=== PATIENT | male | born 2000 | race Caucasian/White ===

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

== ENCOUNTER → 2018-03-29 | Outpatient (CLI) | payer OTHER ==
--- NOTE | 2018-03-29 17:32 | PE ---
EXAMINATION TYPE: PET CT fusion skull to thigh DATE OF EXAM: 03/29/2018 COMPARISON: Neck CT September 02, 2017. HISTORY: Lymphoma initial staging study after left Surgery March 10, 2017. TECHNIQUE: Following the intravenous administration of 11.385 mCi of F-18 FDG, whole body images are performed from the skull base to the midthigh. Images are reviewed on the computer in the coronal, axial, and sagittal planes. Reconstructed rotating images are created on independent workstation and reviewed on the computer. A noncontrast CT is performed in conjunction with the PET scan. SCAN: Initial Scan FINDINGS: SKULL BASE AND NECK: No suspicious hypermetabolic uptake or hypermetabolic adenopathy is identified with particular attention to the left submandibular region at area of prior mass or neoplasm. CHEST, MEDIASTINUM, AND HILAR REGION: No suspicious hypermetabolic uptake is seen. ABDOMEN AND PELVIS: Liver is upper limits of normal in size. Spleen is not suspiciously enlarged. No suspicious hypermetabolic uptake in either structure is present. No suspicious hypermetabolic uptake in the abdomen or pelvis is seen. Normal excretion is noted. OSSEOUS STRUCTURES: No suspicious hypermetabolic uptake is present. OTHER CT: Patient has very little intra-abdominal fat making evaluation slightly suboptimal. IMPRESSION: No suspicious hypermetabolic uptake to suggest residual or metastatic malignancy.
== END | disposition home or self-care (01) ==
LOC: RADPETMAIN 14:20
PROVIDERS: ATTEND Internal Medicine Hematology & Oncology
DX: C83.71 Burkitt lymphoma, lymph nodes of head, face, and neck (principal)
CPT/HCPCS: 78815; A9552

== ENCOUNTER → 2018-04-09 | Outpatient (CLI) | payer OTHER ==
--- NOTE | 2018-04-10 07:34 | ECHOF ---
Referral Reason:C83.71 lymphoma, Z01.818 Pre Chemo MEASUREMENTS -------- HEIGHT: 154.9 cm WEIGHT: 68.9 kg BP: 110/70 RVIDd: 3.0 cm (< 3.3) IVSd: 0.8 cm (0.6 - 1.1) LVIDd: 4.7 cm (3.9 - 5.3) LVPWd: 0.7 cm (0.6 - 1.1) IVSs: 1.5 cm LVIDs: 3.4 cm LVPWs: 1.4 cm LA Diam: 3.2 cm (2.7 - 3.8) LAESV Index (A-L): 18.46 ml/m Ao Diam: 2.8 cm (2.0 - 3.7) AV Cusp: 1.9 cm (1.5 - 2.6) MV EXCURSION: 22.278 mm (> 18.000) MV EF SLOPE: 194 mm/s (70 - 150) EPSS: 0.6 cm MV E Efrem: 0.83 m/s MV DecT: 220 ms MV A Efrem: 0.49 m/s MV E/A Ratio: 1.71 FINDINGS -------- Sinus rhythm. This was a technically excellent study. The left ventricular size is normal. Left ventricular wall thickness is normal. Overall left vent ricular systolic function is normal with, an EF between 55 - 60 %. The right ventricle is normal in size. Normal LA size by volume 22+/-6 ml/m2. The right atrium is normal in size. The aortic valve is trileaflet and appears structurally normal. There is trace mitral regurgitation. Trace tricuspid regurgitation present. There is no pulmonic regurgitation present. The aortic root size is normal. Normal inferior vena cava with normal inspiratory collapse consistent with estimated right atrial pre ssure of 5 mmHg. The inferior vena cava is mildly dilated. There is no pericardial effusion. CONCLUSIONS -------- 1. Sinus rhythm. 2. This was a technically excellent study. 3. The left ventricular size is normal. 4. Left ventricular wall thickness is normal. 5. Overall left ventricular systolic function is normal with, an EF between 55 - 60 %. 6. The right ventricle is normal in size. 7. Normal LA size by volume 22+/-6 ml/m2. 8. The right atrium is normal in size. 9. The aortic valve is trileaflet and appears structurally normal. 10. There is trace mitral regurgitation. 11. Trace tricuspid regurgitation present. 12. There is no pulmonic regurgitation present. 13. The aortic root size is normal. 14. Normal inferior vena cava with normal inspiratory collapse consistent with estimated right atrial pressure of 5 mmHg. 15. The inferior vena cava is mildly dilated. 16. There is no pericardial effusion. GRAIN MERCHANDISING MANAGER: Angelica Chavira RDCS
== END | disposition home or self-care (01) ==
LOC: RADECHMAIN 14:43
PROVIDERS: ATTEND Internal Medicine Hematology & Oncology
DX: C83.71 Burkitt lymphoma, lymph nodes of head, face, and neck (principal)
CPT/HCPCS: 93306

== ENCOUNTER 2018-04-14 08:32 | Inpatient (IN) | payer OTHER ==
[~2018-04-14 08:32] MED LIST: METHOTREXATE SODIUM (PF) 25 MG/ML 2 ML VIAL INTRATHECA ONE
[2018-04-14] MEDS ORDERED: ONDANSETRON 4 MG/2 ML VIAL IVP PRN (09:00)
[2018-04-14] MEDS ORDERED: METHOTREXATE SODIUM INTRATHECA ONE (09:00)
[2018-04-14] MEDS ORDERED: SODIUM CHLORIDE 0.9% INTRATHECA ONE (09:00)
[2018-04-14 09:41] LABS: Basophils % (A) 1 %; Eosinophils # (A) 0.3 k/uL (0-0.7); Eosinophils % (A) 5 %; HCT 42.5 % (39.0-53.0); HGB 13.7 gm/dL (13.0-17.5); Lymphocytes # (A) 1.7 k/uL (1.0-4.8); Lymphocytes % (A) 31 %; MCH 27.4 pg (25.0-35.0); MCHC 32.3 g/dL (31.0-37.0); Mean Platelet Volume 7.7; Monocytes # (A) 0.3 k/uL (0-1.0); Monocytes % (A) 7 %; Neutrophils # (A) 2.9 k/uL (1.3-7.7); Neutrophils % (A) 55 %; Platelet Count 164 k/uL (150-450); RDW 13.5 % (11.5-15.5); WBC 5.3 k/uL (4.0-11.0)
[2018-04-14 09:51] LABS: ALT 27 U/L (21-72); AST 21 U/L (17-59); Albumin 4.3 g/dL (3.5-5.0); Alkaline Phosphatase 66 U/L (38-126); Anion Gap 9 mmol/L; Blood Urea Nitrogen 18 mg/dL (9-20); Calcium 9.5 mg/dL (8.4-10.2); Carbon Dioxide 28 mmol/L (22-30); Chloride 103 mmol/L (98-107); Glucose 100 mg/dL (74-99); Phosphorus 4.2 mg/dL (2.5-4.5); Potassium 4.2 mmol/L (3.5-5.1); Sodium 140 mmol/L (137-145); Total Bilirubin 0.5 mg/dL (0.2-1.3); Total Protein 6.8 g/dL (6.3-8.2)
--- NOTE | 2018-04-14 10:35 | P.HPIM ---
History of Present Illness H&P Date: 04/14/18 Chief Complaint: Burkitt's Lymphoma, admit for prophylactic IT chemo and CIVI treatment Pt is a very pleasant 17 year old male who presented with enlarged left submandibular mass, first noted July 2017. It had remained relatively stable in size overall. CT scan of the neck on 09/02/17 revealed enlarged left submandibular node, he was treated with several courses of antibiotics without improvement. 03/04/18 he had FNA of the lesion which revealed atypical lymphocytes. 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 CBC, CMP, uric acid, LDH were normal , negative for hepatitis B,C and HIV. 03/29/18 staging PET revealed slight uptake at surgical site, otherwise negative. 03/31/18 bone marrow biopsy was negative for involvement. Pt denied any B-symptoms. Pt PMH is negative, he is otherwise healthy. He is admitted today for 1st cycle R-EPOCH and prophylactic intrathecal chemotherapy. On exam today pt looks well, denies oral irritation, difficulty swallowing, SOB, cough, nausea, indigestion, abd discomfort, changes in bowel or baldder habits. Denied any new masses, rashes or lesions. He is fully ambulatory without c/o, no pain. Review of Systems 14 point ROS is negative except as stated HPI Past Medical History Past Medical History: Cancer History of Any Multi-Drug Resistant Organisms: None Reported Past Surgical History: Tonsillectomy Additional Past Surgical History / Comment(s): port placed 03/31/18 at [facility]. lt side neck tumor removed 03/10/18 Additional Past Anesthesia/Blood Transfusion Reaction / Comment(s): Never had a transfusion Past Psychological History: No Psychological Hx Reported Smoking Status: Never smoker Past Alcohol Use History: None Reported Past Drug Use History: None Reported - Past Family History Mother Additional Family Medical History / Comment(s): no Hx cancer or blood disorders Medications and Allergies Home Medications Medication Instructions Recorded Confirmed Type Lisdexamfetamine Dimesylate 60 mg PO QAM 03/31/18 04/14/18 History [Vyvanse] Allergies Allergy/AdvReac Type Severity Reaction Status Date / Time No Known Allergies Allergy Verified 04/14/18 10:06 Physical Exam - Constitutional General appearance: average body habitus, cooperative, no acute distress - EENT Eyes: anicteric sclerae, EOMI, normal appearance ENT: hearing grossly normal, normal oropharynx - Neck left anterior cervical scar from LN excision, firm swelling palpated Neck: lymphadenopathy, normal ROM - Respiratory Respiratory: bilateral: CTA - Cardiovascular Rhythm: regular Heart sounds: normal: S1, S2 Abnormal Heart Sounds: no systolic murmur, no diastolic murmur, no rub, no S3 Gallop, no S4 Gallop, no click, no other leg Peripheral Edema: bilateral: None - Gastrointestinal General gastrointestinal: no absent bowel sounds, no decreased bowel sounds, no distended, no hepatomegaly, no hyperactive bowel sounds, normal bowel sounds, no organomegaly, no rigid, no scaphoid, soft, no splenomegaly, no tenderness, no umbilical hernia, no ventral hernia - Integumentary mild pallor Integumentary: normal turgor - Neurologic Neurologic: CNII-XII intact - Musculoskeletal Musculoskeletal: strength equal bilaterally - Psychiatric Psychiatric: A&O x's 3, appropriate affect, intact judgment & insight Results CBC & Chem 7: 04/14/18 09:27 04/14/18 09:27 Thrombosis Risk Factor Assmnt - DVT/VTE Prophylaxis DVT/VTE Prophylaxis: Mechanical Prophylaxis ordered Assessment and Plan (1) Burkitt lymphoma Narrative/Plan: Node positive for disease, no extra jovanny involvement or visceral organ involvement, bone marrow negative. Admit for prophylactic IT chemotherapy, CSF sent for flow cytometry and other studies and CIVI chemotherapy. Supportive care and medications VS Q shift and PRN I&O DVT prophylaxis with SCDs s/p LP, will consider prophylaxis with lovenox tomorrow as pt has LP this AM. GI prophylaxis included in premedications Daily labs Daily f/u. Current Visit: Yes Status: Acute Priority: High Code(s): C83.70 - BURKITT LYMPHOMA, UNSPECIFIED SITE SNOMED Code(s): 503413237
--- NOTE | 2018-04-14 11:54 | P.PCN ---
Date of Procedure: 04/14/18 Preoperative Diagnosis: Burkitt's lymphoma Postoperative Diagnosis: Burkitt's lymphoma Procedure(s) Performed: Intrathecal chemotherapy administration Estimated Blood Loss (ml): 0 Pathology: other Condition: stable Disposition: floor Indications for Procedure: Burkitt's lymphoma, prophylactic chemotherapy administration Description of Procedure: LP was performed by Dr. Kay with CT guided fluoroscopy. 10 cc CSF was removed for cell count, flow cytometry, total protein and glucose. Methotrexate 12mg diluted to 5ml volume by Pharmacy. Methotrexate vial confirmed to be preservative free with Pharmacist and Chemo/Bio certified RN. Over 5 min the chemotherapy was administered in slow push fashion. On completion, 5cc NS, double check confirmed volume, sterile fluid, in a latex free free syringe. This was administered via slow push over 2 1/2 minutes. Total of 10cc fluid was instilled to equal the 10cc withdrawn from the intrathecal space. Pt tolerated procedure well, no blood loss, VS remained stable throughout procedure, pt denied pain, headache or nausea. LP needle was removed by Physician. All materials collected and disposed of in chemo specific bio-hazard bag.
[2018-04-14] MEDS ORDERED: ACETAMINOPHEN TAB 325 MG TAB PO ONE (12:00)
[2018-04-14] MEDS ORDERED: methylPREDNISolone SOD SUCCI 125 MG/2 ML VIAL IVP ONE (12:00)
[2018-04-14] MEDS ORDERED: diphenhydrAMINE 50 MG/ML 1 ML VIAL IVP ONE (12:00)
[2018-04-14] MEDS ORDERED: riTUXimab 700 MG in SODIUM CHLORIDE 0.9% 500 ML 500 ML IV NR (12:00)
[2018-04-14] MEDS: predniSONE 50 MG TAB PO SCH ×2 (13:05→21:32)
[2018-04-14] MEDS: predniSONE 10 MG TAB PO SCH ×2 (13:05→21:32)
[2018-04-14] MEDS: FAMOTIDINE 20 MG/2 ML VIAL IVP SCH (13:05)
[2018-04-14] MEDS: SODIUM CHLORIDE 0.9% 1,000 ML IV SCH ×3 (13:06→23:00)
[2018-04-14] MEDS: ONDANSETRON 16 MG in SODIUM CHLORIDE 0.9% 50 ML IVPB SCH (13:14)
[2018-04-14 13:18] LABS: Glucose,CSF 59 mg/dL (40-70); Total Protein,CSF 42 mg/dL (12-60)
[2018-04-14 14:16] LABS: Appearance,CSF Clear; CSF Tube Number 4; CSF Tube Volume 3.5; Nucleated Cells, CSF 0 u/L (0-5); Red Blood Cell,CSF 1 u/L (0-10)
--- NOTE | 2018-04-14 15:48 | FL ---
EXAMINATION TYPE: FL guided lumbar puncture LP DATE OF EXAM: 04/14/2018 COMPARISON: None HISTORY: Lymphoma, intrathecal chemotherapy administration TECHNIQUE: The procedure was explained to the patient, the risks and benefits. All questions were ans wered. Written and informed consent was obtained. Patient was placed on the fluoroscopy table in the prone view. The L3-4 level was localized. Skin was cleansed and draped in the standard sterile manner. Skin and deeper tissue was anesthetized with 1% lidocaine. Under fluoroscopic observation 20-gauge spinal needle was advanced into the intrathecal sp sheng. Clear CSF return was obtained. 10 mL CSF was withdrawn for sampling and transferred to the labor atory for additional evaluation. At this point the procedure was turned over to the nurse sondrae r for intrathecal chemotherapy administration. Following the completion of the medication administration the stylet was replaced in the needle was w ithdrawn. Patient was [facility] to [facility] for additional monitoring post lumbar puncture. Patient tolerated procedure very well. Fluoroscopy time: 12 seconds. Images: None IMPRESSION: 1. Fluoroscopy for lumbar puncture guidance for CSF acquisition for analysis and intrathecal chemoth erapy administration.
[2018-04-14] MEDS: SALT AND SODA MOUTHWASH 1,000 ML PO SCH ×2 (18:12→21:33)
[2018-04-14] MEDS: ETOPOSIDE 90 MG in SODIUM CHLORIDE 0.9% 250 ML IV SCH (19:26)
[2018-04-14] MEDS: DOXORUBICIN HCL IV SCH (19:27)
[2018-04-14] MEDS: VINCRISTINE SULFATE IV SCH (19:27)
[2018-04-14] MEDS: SODIUM CHLORIDE 0.9% IV SCH ×2 (19:27)
[2018-04-14] MEDS: FAMOTIDINE 20 MG TAB PO SCH (21:32)
--- NOTE | 2018-04-14 22:59 | CONS ---
CONSULTATION CHIEF COMPLAINT: Burkitt's lymphoma. HISTORY OF PRESENT ILLNESS: This is the first known admission for this 17-year-old white male who was brought in for 5 days of chemotherapy for recently discovered Burkitt's lymphoma. He had a mass below the angle of the jaw on the left which was biopsied and came back a demonstrating Burkitt's lymphoma. He has otherwise been healthy. He takes Vyvanse 60 mg once a day for ADD. REVIEW OF SYSTEMS: He has had no headaches, change in the vision or the hearing, chest pain, shortness of breath, cough, hemoptysis, heart disease, hypertension, murmurs, rheumatic fever, abdominal pain, nausea, vomiting, hematemesis, melena, hematochezia, colitis, diverticulosis, diverticulitis, hemorrhoids, jaundice, hepatitis, liver disease, renal failure, dysuria, frequency, urgency, hematuria, arthralgias, diabetes, etc. Past medical history, family history, and personal and social histories are unremarkable and noncontributory otherwise. He does smoke. He drinks alcohol occasionally. 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 PHYSICAL EXAMINATION: Blood pressure 120/80, pulse 68, respirations 16. He is afebrile. In general he appeared to be slender, well developed, well nourished, in no acute distress. Skin color was normal. Skin was warm and dry. Lymph nodes were not enlarged. Head, ears, eyes, nose, mouth and throat were normal. Neck veins were not distended. Thyroid was not enlarged. Chest was clear. Cardiac exam was normal. Abdomen was soft, nontender. Extremities were normal. He has a scar on the left side of the neck from his recent biopsy. IMPRESSION: 1. Burkitt's lymphoma. 2. Attention deficit disorder. RECOMMENDATIONS: None at this time. Thank you. MMODL / IJN: [id number] /
[2018-04-15] MEDS: SALT AND SODA MOUTHWASH 1,000 ML PO SCH ×5 (01:14→22:22)
[2018-04-15] MEDS: SODIUM CHLORIDE 0.9% 1,000 ML IV SCH ×3 (06:16→19:54)
[2018-04-15 08:47] LABS: Basophils % (A) 0 %; Eosinophils % (A) 0 %; HGB 14.2 gm/dL (13.0-17.5); Lymphocytes # (A) 0.3 k/uL (1.0-4.8); Lymphocytes % (A) 4 %; MCH 27.4 pg (25.0-35.0); MCHC 31.5 g/dL (31.0-37.0); MCV 86.9 fL (80.0-100.0); Mean Platelet Volume 7.9; Monocytes # (A) 0.2 k/uL (0-1.0); Monocytes % (A) 3 %; Neutrophils # (A) 6.8 k/uL (1.3-7.7); Neutrophils % (A) 93 %; Platelet Count 167 k/uL (150-450); RBC 5.18 m/uL (4.30-5.90); RDW 13.6 % (11.5-15.5); WBC 7.3 k/uL (4.0-11.0)
[2018-04-15] MEDS ORDERED: LISDEXAMFETAMINE DIMESYLATE 60 MG PO SCH (09:00)
[2018-04-15 09:03] LABS: ALT 37 U/L (21-72); AST 23 U/L (17-59); Albumin 3.8 g/dL (3.5-5.0); Alkaline Phosphatase 55 U/L (38-126); Anion Gap 8 mmol/L; Blood Urea Nitrogen 15 mg/dL (9-20); Calcium 9.5 mg/dL (8.4-10.2); Carbon Dioxide 24 mmol/L (22-30); Chloride 108 mmol/L (98-107); Glucose 129 mg/dL (74-99); Phosphorus 4.6 mg/dL (2.5-4.5); Potassium 4.5 mmol/L (3.5-5.1); Sodium 140 mmol/L (137-145); Total Bilirubin 0.8 mg/dL (0.2-1.3); Total Protein 6.4 g/dL (6.3-8.2); Uric Acid 4.1 mg/dL (3.5-8.5)
[2018-04-15] MEDS: predniSONE 10 MG TAB PO SCH ×2 (09:20→22:21)
[2018-04-15] MEDS: predniSONE 50 MG TAB PO SCH ×2 (09:20→22:22)
[2018-04-15] MEDS: LISDEXAMFETAMINE DIMESYLATE 60 MG PO SCH (12:09)
--- NOTE | 2018-04-15 14:57 | PN ---
PROGRESS NOTE DATE OF SERVICE: 04/15/2018. CHIEF COMPLAINT: Burkitt's lymphoma. HISTORY OF PRESENT ILLNESS: This gentleman is getting his chemo and he has not had any trouble so far. He denies any shortness of breath, chest pain, pleuritis, etc. PHYSICAL EXAM: His chest is clear and cardiac exam is normal. The abdomen is soft, nontender. IMPRESSION: Burkitt's lymphoma. PLAN: Continue with treatment. MMODL / IJN: [id number] /
[2018-04-15] MEDS: ONDANSETRON 16 MG in SODIUM CHLORIDE 0.9% 50 ML IVPB SCH (15:33)
[2018-04-15] MEDS: FAMOTIDINE 20 MG/2 ML VIAL IVP SCH (15:33)
--- NOTE | 2018-04-15 18:54 | P.PN ---
Subjective Progress Note Date: 04/15/18 the patient is on day #2 of his high-dose infusional chemotherapy with the hyper C VAD regimen. He is tolerating treatment well so far. He denied any fever/chills/nausea/vomiting/mouth sores. Appetite is maintained. No history of any headaches or visual complaints Objective - Vital Signs Vital signs: Vital Signs Temp 98.2 F 04/15/18 16:00 Pulse 106 H 04/15/18 16:00 Resp 16 04/15/18 16:00 BP 109/56 04/15/18 16:00 Pulse Ox 96 04/15/18 16:00 Intake & Output 04/14/18 04/15/18 04/15/18 18:59 06:59 18:59 Intake Total 7292.447 3915 2650 Output Total 300 450 975 Balance 1645.506 1174 1675 Intake: Intake, IV Titration 5285.350 6194 1915 Amount DOXOrubicin HCL 19 mg In 121 Sodium Chloride 0.9% 250 ml @ 10.813 mls/hr IV Q24H [facility] Rx#:[id number] Etoposide 90 mg In Sodium 121 Chloride 0.9% 250 ml @ 10.604 mls/hr IV Q24H [facility] Rx#:[id number] Ondansetron 16 mg In 50 Sodium Chloride 0.9% 50 ml @ 232 mls/hr IVPB Q24H [facility] Rx#:[id number] Sodium Chloride 0.9% 1, 1200 1800 1650 000 ml @ 150 mls/hr IV . Q6H40M [facility] Rx#:[id number] riTUXimab 700 mg In 498.334 Sodium Chloride 0.9% 500 ml 500 ml @ Titrate IV . Q0M Rx#:[id number] vinCRIStine SULFATE 0.75 23 mg In Sodium Chloride 0.9 % 50 ml @ 2.115 mls/hr IV Q24H [facility] Rx#:[id number] Oral 960 735 Output: Urine 300 450 975 Other: # Voids 1 - Constitutional General appearance: Present: no acute distress - EENT Eyes: Present: EOMI ENT: Present: hearing grossly normal, normal oropharynx - Respiratory Respiratory: bilateral: CTA - Cardiovascular Rhythm: regular (along with) Heart sounds: normal: S1 (given), S2 - Gastrointestinal General gastrointestinal: Present: normal bowel sounds (while), soft - Integumentary Integumentary: Present: normal - Neurologic Neurologic: Present: CNII-XII intact - Musculoskeletal Musculoskeletal: Present: generalized weakness, strength equal bilaterally (ase will resume) - Psychiatric Psychiatric: Present: A&O x's 3 - Labs CBC & Chem 7: 04/15/18 08:09 04/15/18 08:09 Labs: Abnormal Lab Results - Last 24 Hours (Table) 04/15/18 04/15/18 Range/Units 08:09 08:09 Lymphocytes # 0.3 L (1.0-4.8) k/uL Chloride 108 H (98-107) mmol/L Glucose 129 H (74-99) mg/dL Phosphorus 4.6 H (2.5-4.5) mg/dL Assessment and Plan (1) Burkitt lymphoma Narrative/Plan: the patient is on day #2 of his high-dose infusional chemotherapy regimen today. He has tolerated treatment well so far. He also received intrathecal chemotherapy yesterday without any untoward side effects. Labs were reviewed and showed no significant abnormality, especially any indicative of tumor lysis. - Continue chemotherapy per protocol - Continue to monitor with clinical exams, and labs, which have been ordered Current Visit: Yes Status: Acute Priority: High Code(s): C83.70 - BURKITT LYMPHOMA, UNSPECIFIED SITE SNOMED Code(s): 692240129
[2018-04-15] MEDS: VINCRISTINE SULFATE IV SCH (20:49)
[2018-04-15] MEDS: DOXORUBICIN HCL IV SCH (20:49)
[2018-04-15] MEDS: SODIUM CHLORIDE 0.9% IV SCH ×2 (20:49)
[2018-04-15] MEDS: ETOPOSIDE 90 MG in SODIUM CHLORIDE 0.9% 250 ML IV SCH (20:49)
[2018-04-15] MEDS: FAMOTIDINE 20 MG TAB PO SCH (22:21)
[2018-04-16] MEDS: SALT AND SODA MOUTHWASH 1,000 ML PO SCH ×5 (00:16→22:31)
[2018-04-16] MEDS: SODIUM CHLORIDE 0.9% 1,000 ML IV SCH ×6 (00:19→21:36)
[2018-04-16 07:55] LABS: Basophils % (A) 0 %; Eosinophils # (A) 0.1 k/uL (0-0.7); Eosinophils % (A) 1 %; HCT 38.5 % (39.0-53.0); HGB 12.6 gm/dL (13.0-17.5); Lymphocytes # (A) 0.3 k/uL (1.0-4.8); Lymphocytes % (A) 3 %; MCH 28.4 pg (25.0-35.0); MCHC 32.8 g/dL (31.0-37.0); MCV 86.7 fL (80.0-100.0); Mean Platelet Volume 7.3; Monocytes # (A) 0.3 k/uL (0-1.0); Monocytes % (A) 3 %; Neutrophils # (A) 10.1 k/uL (1.3-7.7); Neutrophils % (A) 94 %; Platelet Count 165 k/uL (150-450); RBC 4.45 m/uL (4.30-5.90); RDW 13.6 % (11.5-15.5); WBC 10.8 k/uL (4.0-11.0)
[2018-04-16 08:05] LABS: ALT 33 U/L (21-72); AST 16 U/L (17-59); Albumin 3.2 g/dL (3.5-5.0); Alkaline Phosphatase 57 U/L (38-126); Anion Gap 5 mmol/L; Blood Urea Nitrogen 13 mg/dL (9-20); Carbon Dioxide 25 mmol/L (22-30); Chloride 110 mmol/L (98-107); Glucose 138 mg/dL (74-99); Phosphorus 3.5 mg/dL (2.5-4.5); Potassium 4.2 mmol/L (3.5-5.1); Sodium 140 mmol/L (137-145); Total Bilirubin 0.4 mg/dL (0.2-1.3); Total Protein 5.6 g/dL (6.3-8.2); Uric Acid 3.2 mg/dL (3.5-8.5)
[2018-04-16] MEDS: predniSONE 10 MG TAB PO SCH ×2 (09:29→22:30)
[2018-04-16] MEDS: predniSONE 50 MG TAB PO SCH ×2 (09:29→22:30)
[2018-04-16] MEDS: LISDEXAMFETAMINE DIMESYLATE 60 MG PO SCH (09:30)
[2018-04-16] MEDS: FAMOTIDINE 20 MG/2 ML VIAL IVP SCH (13:02)
[2018-04-16] MEDS: ONDANSETRON 16 MG in SODIUM CHLORIDE 0.9% 50 ML IVPB SCH (13:03)
--- NOTE | 2018-04-16 14:13 | PN ---
PROGRESS NOTE DATE OF SERVICE: 04/16/2018 CHIEF COMPLAINT: Burkitt's lymphoma. HISTORY OF PRESENT ILLNESS: This gentleman is doing well with his treatments. He has had no chest pain, abdominal pain, fever, chills, nausea, vomiting, pruritus, etc. PHYSICAL EXAM: Chest is clear and cardiac exam is normal. The abdomen is soft, nontender. IMPRESSION: Burkitt's lymphoma on chemotherapy. PLAN: No change in treatment from my perspective. MMODL / IJN: [id number] /
--- NOTE | 2018-04-16 17:28 | P.PN ---
Subjective Progress Note Date: 04/16/18 Principal diagnosis: Burkitts Lymphoma No acute complaints, feeling well today. No nausea, vomting, diarrhea. Objective - Vital Signs Vital signs: Vital Signs Temp 98.2 F 04/16/18 16:06 Pulse 89 04/16/18 16:06 Resp 16 04/16/18 16:06 BP 119/69 04/16/18 16:06 Pulse Ox 96 04/16/18 16:06 Intake & Output 04/15/18 04/16/18 04/16/18 18:59 06:59 18:59 Intake Total 2650 3776 1914 Output Total 367 197 1066 Balance 1675 2976 79 Intake: Intake, IV Titration 1914 2135 1913 Amount Cyclophosphamide 1,000 mg 18 Cyclophosphamide 400 mg In Sodium Chloride 0.9% 250 ml @ 640 mls/hr IV ONCE@1800 [facility] Rx#: [id number] DOXOrubicin HCL 19 mg In 121 144 121 Sodium Chloride 0.9% 250 ml @ 10.813 mls/hr IV Q24H [facility] Rx#:[id number] Etoposide 90 mg In Sodium 121 144 121 Chloride 0.9% 250 ml @ 10.604 mls/hr IV Q24H [facility] Rx#:[id number] Sodium Chloride 0.9% 1, 1650 1800 1650 000 ml @ 150 mls/hr IV . Q6H40M [facility] Rx#:[id number] vinCRIStine SULFATE 0.75 23 30 22 mg In Sodium Chloride 0.9 % 50 ml @ 2.115 mls/hr IV Q24H [facility] Rx#:[id number] Oral 735 1640 Output: Urine 722 201 1317 - Exam Constitutional General appearance: Present: no acute distress - EENT Eyes: Present: EOMI ENT: Present: hearing grossly normal, normal oropharynx - Respiratory Respiratory: bilateral: CTA - Cardiovascular Rhythm: regular (along with) Heart sounds: normal: S1 (given), S2 - Gastrointestinal General gastrointestinal: Present: normal bowel sounds (while), soft - Integumentary Integumentary: Present: normal - Neurologic Neurologic: Present: CNII-XII intact - Musculoskeletal Musculoskeletal: Present: generalized weakness, strength equal bilaterally (ase will resume) - Psychiatric Psychiatric: Present: A&O x's 3 - Labs CBC & Chem 7: 04/16/18 07:01 04/16/18 07:01 Labs: Abnormal Lab Results - Last 24 Hours (Table) 04/16/18 04/16/18 Range/Units 07:01 07:01 Hgb 12.6 L (13.0-17.5) gm/dL Hct 38.5 L (39.0-53.0) % Neutrophils # 10.1 H (1.3-7.7) k/uL Lymphocytes # 0.3 L (1.0-4.8) k/uL Chloride 110 H (98-107) mmol/L Creatinine 0.63 L (0.66-1.25) mg/dL Glucose 138 H (74-99) mg/dL Uric Acid 3.2 L (3.5-8.5) mg/dL AST 16 L (17-59) U/L Total Protein 5.6 L (6.3-8.2) g/dL Albumin 3.2 L (3.5-5.0) g/dL Assessment and Plan Plan: (1) Burkitt lymphoma Narrative/Plan: the patient is on day #3 of his high-dose infusional chemotherapy regimen today. He has tolerated treatment well so far. He also received intrathecal chemotherapy yesterday without any untoward side effects. Labs were reviewed and showed no significant abnormality, especially any indicative of tumor lysis. - Continue chemotherapy per protocol - Continue to monitor with clinical exams, and labs, which have been ordered Physician Attest: I have completed the full history and physical and devloped the completed impression and plan, agree with above, dictated as a scribe
[2018-04-16] MEDS: VINCRISTINE SULFATE IV SCH (21:31)
[2018-04-16] MEDS: SODIUM CHLORIDE 0.9% IV SCH ×2 (21:31→21:32)
[2018-04-16] MEDS: DOXORUBICIN HCL IV SCH (21:32)
[2018-04-16] MEDS: ETOPOSIDE 90 MG in SODIUM CHLORIDE 0.9% 250 ML IV SCH (21:32)
[2018-04-16] MEDS: FAMOTIDINE 20 MG TAB PO SCH (22:30)
[2018-04-17] MEDS: SALT AND SODA MOUTHWASH 1,000 ML PO SCH ×6 (01:25→23:35)
[2018-04-17] MEDS: ACETAMINOPHEN TAB 325 MG TAB PO PRN ×2 (01:48→15:47)
[2018-04-17] MEDS: SODIUM CHLORIDE 0.9% 1,000 ML IV SCH ×4 (03:20→22:47)
[2018-04-17] MEDS: predniSONE 50 MG TAB PO SCH ×2 (08:40→21:25)
[2018-04-17] MEDS: predniSONE 10 MG TAB PO SCH ×2 (08:40→21:25)
[2018-04-17 08:50] LABS: Basophils % (A) 0 %; Eosinophils % (A) 0 %; HCT 38.3 % (39.0-53.0); HGB 12.5 gm/dL (13.0-17.5); Lymphocytes # (A) 0.3 k/uL (1.0-4.8); Lymphocytes % (A) 5 %; MCH 28.1 pg (25.0-35.0); MCHC 32.6 g/dL (31.0-37.0); MCV 86.2 fL (80.0-100.0); Mean Platelet Volume 7.2; Monocytes # (A) 0.2 k/uL (0-1.0); Monocytes % (A) 3 %; Neutrophils # (A) 6.2 k/uL (1.3-7.7); Neutrophils % (A) 92 %; Platelet Count 159 k/uL (150-450); RBC 4.45 m/uL (4.30-5.90); RDW 13.4 % (11.5-15.5); WBC 6.8 k/uL (4.0-11.0)
[2018-04-17 09:31] LABS: ALT 52 U/L (21-72); AST 28 U/L (17-59); Albumin 3.3 g/dL (3.5-5.0); Alkaline Phosphatase 51 U/L (38-126); Anion Gap 6 mmol/L; Blood Urea Nitrogen 13 mg/dL (9-20); Calcium 9.1 mg/dL (8.4-10.2); Carbon Dioxide 27 mmol/L (22-30); Chloride 106 mmol/L (98-107); Glucose 127 mg/dL (74-99); Phosphorus 3.7 mg/dL (2.5-4.5); Potassium 4.1 mmol/L (3.5-5.1); Sodium 139 mmol/L (137-145); Total Bilirubin 0.5 mg/dL (0.2-1.3); Total Protein 5.5 g/dL (6.3-8.2); Uric Acid 3.1 mg/dL (3.5-8.5)
--- NOTE | 2018-04-17 11:54 | PN ---
PROGRESS NOTE DATE OF SERVICE: 04/17/2018 CHIEF COMPLAINT: Inpatient chemotherapy for Burkitt's lymphoma. HISTORY OF PRESENT ILLNESS: This patient has developed a little low back pain. He has had otherwise no problems including nausea, diarrhea, vomiting, itching, etc. PHYSICAL EXAM: Chest is clear and the cardiac exam is normal and flanks are nontender. IMPRESSION: 1. Low back pain. 2. Burkitt's lymphoma. PLAN: No change in his program and he expects to go home Saturday. MMODL / NAHOMIN: [id number] /
--- NOTE | 2018-04-17 12:29 | P.PN ---
Subjective Progress Note Date: 04/17/18 Principal diagnosis: Burkitts Lymphoma No acute complaints, feeling well today. No nausea, vomting, diarrhea. He is tolerating treatment well and blood counts are stable. Objective - Vital Signs Vital signs: Vital Signs Temp 98 F 04/17/18 11:44 Pulse 69 04/17/18 11:44 Resp 16 04/17/18 11:44 BP 114/56 04/17/18 11:44 Pulse Ox 97 04/17/18 11:44 Intake & Output 04/16/18 04/17/18 04/17/18 18:59 06:59 18:59 Intake Total 2088 2963 872.5 Output Total 2635 2200 Balance -547 763 872.5 Intake: Intake, IV Titration 2088 2133 872.5 Amount DOXOrubicin HCL 19 mg In 132 144 55.8 Sodium Chloride 0.9% 250 ml @ 10.813 mls/hr IV Q24H [facility] Rx#:[id number] Etoposide 90 mg In Sodium 132 144 55.8 Chloride 0.9% 250 ml @ 10.604 mls/hr IV Q24H [facility] Rx#:[id number] Sodium Chloride 0.9% 1, 1800 1800 750 000 ml @ 150 mls/hr IV . Q6H40M [facility] Rx#:[id number] vinCRIStine SULFATE 0.75 24 45 10.9 mg In Sodium Chloride 0.9 % 50 ml @ 2.115 mls/hr IV Q24H [facility] Rx#:[id number] Oral 830 Output: Urine 2635 2200 Other: # Voids 1 - Exam Constitutional General appearance: Present: no acute distress - EENT Eyes: Present: EOMI ENT: Present: hearing grossly normal, normal oropharynx - Respiratory Respiratory: bilateral: CTA - Cardiovascular Rhythm: regular (along with) Heart sounds: normal: S1 (given), S2 - Gastrointestinal General gastrointestinal: Present: normal bowel sounds (while), soft - Integumentary Integumentary: Present: normal - Neurologic Neurologic: Present: CNII-XII intact - Musculoskeletal Musculoskeletal: Present: generalized weakness, strength equal bilaterally (ase will resume) - Psychiatric Psychiatric: Present: A&O x's 3 - Labs CBC & Chem 7: 04/17/18 07:58 04/17/18 07:58 Labs: Abnormal Lab Results - Last 24 Hours (Table) 04/17/18 04/17/18 Range/Units 07:58 07:58 Hgb 12.5 L (13.0-17.5) gm/dL Hct 38.3 L (39.0-53.0) % Lymphocytes # 0.3 L (1.0-4.8) k/uL Creatinine 0.61 L (0.66-1.25) mg/dL Glucose 127 H (74-99) mg/dL Uric Acid 3.1 L (3.5-8.5) mg/dL Total Protein 5.5 L (6.3-8.2) g/dL Albumin 3.3 L (3.5-5.0) g/dL Assessment and Plan Plan: (1) Burkitt lymphoma Narrative/Plan: the patient is on day #4 of his high-dose infusional chemotherapy regimen today. He has tolerated treatment well so far. He also received intrathecal chemotherapy yesterday without any untoward side effects. Labs were reviewed and showed no significant abnormality, especially any indicative of tumor lysis. - Continue chemotherapy per protocol - Continue to monitor with clinical exams, and labs, which have been ordered - Plan for discharge with prophylaxis antibiotics and neulasta in the office, 1 -2 x a week follow-up - Initation of acyclovir now. Physician Attest: I have completed the full history and physical and devloped the completed impression and plan, agree with above, dictated as a scribe
[2018-04-17] MEDS: PANTOPRAZOLE 40 MG/10 ML VIAL IVP SCH ×2 (12:45→21:25)
[2018-04-17] MEDS: LISDEXAMFETAMINE DIMESYLATE 60 MG PO SCH (14:32)
[2018-04-17] MEDS: FAMOTIDINE 20 MG/2 ML VIAL IVP SCH ×2 (14:42→21:25)
[2018-04-17] MEDS: ONDANSETRON 16 MG in SODIUM CHLORIDE 0.9% 50 ML IVPB SCH ×2 (14:43→21:25)
[2018-04-17] MEDS: ACYCLOVIR 200 MG CAP PO SCH (21:25)
[2018-04-17] MEDS: FAMOTIDINE 20 MG TAB PO SCH (22:18)
[2018-04-17] MEDS: SODIUM CHLORIDE 0.9% IV SCH ×2 (22:31→22:32)
[2018-04-17] MEDS: DOXORUBICIN HCL IV SCH (22:31)
[2018-04-17] MEDS: VINCRISTINE SULFATE IV SCH (22:32)
[2018-04-17] MEDS: ETOPOSIDE 90 MG in SODIUM CHLORIDE 0.9% 250 ML IV SCH (22:35)
[2018-04-18] MEDS: SODIUM CHLORIDE 0.9% 1,000 ML IV SCH ×4 (04:10→21:14)
[2018-04-18] MEDS: ACETAMINOPHEN TAB 325 MG TAB PO PRN ×3 (05:14→16:49)
[2018-04-18] MEDS: SALT AND SODA MOUTHWASH 1,000 ML PO SCH ×4 (05:16→21:13)
[2018-04-18 08:53] LABS: Basophils % (A) 0 %; Eosinophils % (A) 1 %; HCT 39.2 % (39.0-53.0); HGB 12.7 gm/dL (13.0-17.5); Lymphocytes # (A) 0.4 k/uL (1.0-4.8); Lymphocytes % (A) 7 %; MCH 27.5 pg (25.0-35.0); MCHC 32.4 g/dL (31.0-37.0); MCV 84.8 fL (80.0-100.0); Mean Platelet Volume 7.3; Monocytes # (A) 0.1 k/uL (0-1.0); Monocytes % (A) 2 %; Neutrophils # (A) 4.9 k/uL (1.3-7.7); Neutrophils % (A) 91 %; Platelet Count 158 k/uL (150-450); RBC 4.62 m/uL (4.30-5.90); RDW 13.4 % (11.5-15.5); WBC 5.5 k/uL (4.0-11.0)
[2018-04-18 09:04] LABS: ALT 41 U/L (21-72); AST 14 U/L (17-59); Albumin 3.1 g/dL (3.5-5.0); Alkaline Phosphatase 47 U/L (38-126); Anion Gap 6 mmol/L; Blood Urea Nitrogen 12 mg/dL (9-20); Carbon Dioxide 28 mmol/L (22-30); Chloride 105 mmol/L (98-107); Glucose 114 mg/dL (74-99); Phosphorus 3.7 mg/dL (2.5-4.5); Potassium 3.7 mmol/L (3.5-5.1); Sodium 139 mmol/L (137-145); Total Bilirubin 0.8 mg/dL (0.2-1.3); Total Protein 5.3 g/dL (6.3-8.2)
[2018-04-18] MEDS: predniSONE 50 MG TAB PO SCH ×2 (09:27→21:12)
[2018-04-18] MEDS: ACYCLOVIR 200 MG CAP PO SCH ×2 (09:27→21:12)
[2018-04-18] MEDS: predniSONE 10 MG TAB PO SCH ×2 (09:27→21:13)
[2018-04-18] MEDS: PANTOPRAZOLE 40 MG/10 ML VIAL IVP SCH ×2 (09:28→21:12)
[2018-04-18] MEDS: LISDEXAMFETAMINE DIMESYLATE 60 MG PO SCH (11:47)
[2018-04-18] MEDS ORDERED: HYDROcodone/APAP 5-325MG 1 EACH TAB PO PRN (11:56)
--- NOTE | 2018-04-18 13:12 | P.PN ---
Subjective Progress Note Date: 04/18/18 Principal diagnosis: Burkitts Lymphoma No acute complaints, except fatigue. I am concerned on his understanding of treatment as he was hoping to work tonight at [employer]. Re-education provided on risks of infection post induction. Also he appears to have decreased appetite , and not getting out of bed. He has flat affect the majority of time, discussed in detail with nursing and will have therapeutic program worker see him to further assess. Objective - Vital Signs Vital signs: Vital Signs Temp 98.1 F 04/18/18 12:00 Pulse 64 04/18/18 12:00 Resp 18 04/18/18 12:00 BP 112/59 04/18/18 12:00 Pulse Ox 96 04/18/18 12:00 Intake & Output 04/17/18 04/18/18 04/18/18 18:59 06:59 18:59 Intake Total 2093.4 2161.789 880.5 Output Total 1550 2240 Balance 543.4 -78.211 880.5 Intake: Intake, IV Titration 2093.4 1611.789 880.5 Amount DOXOrubicin HCL 19 mg In 138.4 97.318 59.0 Sodium Chloride 0.9% 250 ml @ 10.813 mls/hr IV Q24H [facility] Rx#:[id number] Etoposide 90 mg In Sodium 276.6 95.436 59.0 Chloride 0.9% 250 ml @ 10.604 mls/hr IV Q24H [facility] Rx#:[id number] Ondansetron 16 mg In 50 Sodium Chloride 0.9% 50 ml @ 232 mls/hr IVPB Q24H [facility] Rx#:[id number] Sodium Chloride 0.9% 1, 1650 1350 750 000 ml @ 150 mls/hr IV . Q6H40M [facility] Rx#:[id number] vinCRIStine SULFATE 0.75 28.4 19.035 12.5 mg In Sodium Chloride 0.9 % 50 ml @ 2.115 mls/hr IV Q24H [facility] Rx#:[id number] Oral 550 Output: Urine 1550 2240 Other: Voiding Method Toilet # Voids 1 - Exam Constitutional General appearance: Present: no acute distress - EENT Eyes: Present: EOMI ENT: Present: hearing grossly normal, normal oropharynx - Respiratory Respiratory: bilateral: CTA - Cardiovascular Rhythm: regular (along with) Heart sounds: normal: S1 (given), S2 - Gastrointestinal General gastrointestinal: Present: normal bowel sounds (while), soft - Integumentary Integumentary: Present: normal - Neurologic Neurologic: Present: CNII-XII intact - Musculoskeletal Musculoskeletal: Present: generalized weakness, strength equal bilaterally (ase will resume) - Psychiatric Psychiatric: Present: A&O x's 3 - Labs CBC & Chem 7: 04/18/18 08:02 04/18/18 08:02 Labs: Abnormal Lab Results - Last 24 Hours (Table) 04/18/18 04/18/18 Range/Units 08:02 08:02 Hgb 12.7 L (13.0-17.5) gm/dL Lymphocytes # 0.4 L (1.0-4.8) k/uL Creatinine 0.62 L (0.66-1.25) mg/dL Glucose 114 H (74-99) mg/dL Uric Acid 3.0 L (3.5-8.5) mg/dL AST 14 L (17-59) U/L Total Protein 5.3 L (6.3-8.2) g/dL Albumin 3.1 L (3.5-5.0) g/dL Assessment and Plan Plan: (1) Burkitt lymphoma Narrative/Plan: the patient is on day #4 of his high-dose infusional chemotherapy regimen today. He has tolerated treatment well so far. He also received intrathecal chemotherapy yesterday without any untoward side effects. Labs were reviewed and showed no significant abnormality, especially any indicative of tumor lysis. - Continue chemotherapy per protocol - Continue to monitor with clinical exams, and labs, which have been ordered - Per standard protocol PCP prophylaxis and CLomatrazole is standard, as well as GCSF, I will discuss with Dr. Lovell. - He is low risk disease and early stage, although on a DA-regimen - culinary worker to assess - Continue daily CBC and CMP Physician Attest: I have completed the full history and physical and devloped the completed impression and plan, agree with above, dictated as a scribe
[2018-04-18] MEDS ORDERED: ACETAMINOPHEN TAB 325 MG TAB PO PRN (17:48)
[2018-04-18] MEDS ORDERED: CYCLOPHOSPHAMIDE IV ONE (18:00)
[2018-04-18] MEDS ORDERED: SODIUM CHLORIDE 0.9% IV ONE (18:00)
--- NOTE | 2018-04-18 18:03 | XR ---
Lumbar spine 3 views. History pain Comparison none. FINDINGS: Vertebra have normal spacing and alignment. Posterior elements are intact. Sacroiliac joints appear i ntact. IMPRESSION: Negative lumbar spine exam.
--- NOTE | 2018-04-18 18:05 | XR ---
Thoracic spine 3 views. History back pain. Comparison none. FINDINGS: Thoracic vertebra have normal spacing and alignment. There is no compression fracture. There is no pa raspinal mass. Posterior elements are intact. IMPRESSION: Normal thoracic spine.
--- NOTE | 2018-04-18 18:40 | PN ---
PROGRESS NOTE DATE OF SERVICE: 04/18/2018 I am covering for Dr. Estrada. HISTORY OF PRESENT ILLNESS: This is a 17-year-old gentleman who was admitted with chemotherapy for Burkitt's lymphoma, is being closely monitored. The patient is complaining of low back pain. No chest pain. No palpitations. No fever. EXAM: Alert and oriented x3. Pulse is 63, blood pressure 137/87, respiration 18, temperature 97.2, pulse ox 100 percent on room air. EYES: Conjunctivae normal. NECK: No jugular venous distention. CARDIOLOGY: S1, S2 muffled. RESPIRATORY: Breath sounds diminished at the bases. No rhonchi, no crackles. ABDOMEN: Soft. LEGS: No swelling. NERVOUS SYSTEM: minimal tenderness. LAB STUDIES: WBC 4.2, hemoglobin 12.7 and uric acid 3. Sodium 130, potassium 3.7. ASSESSMENT: 1. Burkitt's lymphoma on high-dose infusional chemotherapy. 2. Back pain for evaluation. 3. History of lumbar puncture. 4. Anemia, mild secondary to lymphoma. 5. History of attention deficit disorder/attention deficit hyperactivity disorder. 6. History of nicotine dependence. RECOMMENDATION: In this 17-year-old gentleman who presented with multiple complex medical issues , we will monitor the patient closely, continue the current management, continue the symptomatic treatment. I recommend x-ray of thoracodorsal spine. Symptomatic treatment of the pain, DVT prophylaxis and closely follow with Hematology/ Oncology. Further recommendations to follow. MMODL / IJN: [id number] / MTDD
[2018-04-18 18:46] LABS: Appearance,Urine Clear (Clear); Bilirubin,Urine Negative (Negative); Blood,Urine Negative (Negative); Color,Urine Colorless; Glucose,Urine (UA) Negative (Negative); Ketones,Urine Negative (Negative); Leukocyte Esterase,Urine Negative (Negative); Nitrite,Urine Negative (Negative); Protein,Urine Negative (Negative); Specific Gravity,Urine 1.003 (1.001-1.035); Urobilinogen,Urine <2.0 mg/dL (<2.0)
[2018-04-18] MEDS: HEPARIN SODIUM,PORCINE 5,000 UNIT/ML 1 ML VIAL SQ SCH (21:12)
[2018-04-18] MEDS: ONDANSETRON 16 MG in SODIUM CHLORIDE 0.9% 50 ML IVPB SCH (21:12)
[2018-04-18] MEDS: FAMOTIDINE 20 MG/2 ML VIAL IVP SCH (21:12)
[2018-04-18] MEDS: FAMOTIDINE 20 MG TAB PO SCH (21:13)
[2018-04-18] MEDS: DOCUSATE 100 MG CAP PO SCH (21:13)
[2018-04-18 21:14] VITALS: RESP 16
[2018-04-19] MEDS: SODIUM CHLORIDE 0.9% 1,000 ML IV SCH ×2 (05:33→12:01)
[2018-04-19] MEDS: SALT AND SODA MOUTHWASH 1,000 ML PO SCH ×3 (05:34→12:05)
[2018-04-19 07:14] LABS: Basophils % (A) 0 %; Eosinophils % (A) 1 %; HCT 40.5 % (39.0-53.0); HGB 13.1 gm/dL (13.0-17.5); Lymphocytes # (A) 0.3 k/uL (1.0-4.8); Lymphocytes % (A) 6 %; MCH 27.1 pg (25.0-35.0); MCHC 32.3 g/dL (31.0-37.0); MCV 83.9 fL (80.0-100.0); Mean Platelet Volume 7.3; Monocytes # (A) 0.1 k/uL (0-1.0); Monocytes % (A) 1 %; Neutrophils # (A) 4.8 k/uL (1.3-7.7); Neutrophils % (A) 93 %; Platelet Count 169 k/uL (150-450); RBC 4.82 m/uL (4.30-5.90); RDW 13.1 % (11.5-15.5); WBC 5.2 k/uL (4.0-11.0)
[2018-04-19 07:24] LABS: ALT 30 U/L (21-72); AST 12 U/L (17-59); Albumin 3.3 g/dL (3.5-5.0); Alkaline Phosphatase 57 U/L (38-126); Anion Gap 7 mmol/L; Blood Urea Nitrogen 14 mg/dL (9-20); Calcium 8.9 mg/dL (8.4-10.2); Carbon Dioxide 29 mmol/L (22-30); Chloride 99 mmol/L (98-107); Glucose 136 mg/dL (74-99); Phosphorus 3.4 mg/dL (2.5-4.5); Potassium 3.6 mmol/L (3.5-5.1); Sodium 135 mmol/L (137-145); Total Bilirubin 0.7 mg/dL (0.2-1.3); Total Protein 5.5 g/dL (6.3-8.2)
[2018-04-19] MEDS: ACYCLOVIR 200 MG CAP PO SCH (09:03)
[2018-04-19] MEDS: DOCUSATE 100 MG CAP PO SCH (09:03)
[2018-04-19] MEDS: HEPARIN SODIUM,PORCINE 5,000 UNIT/ML 1 ML VIAL SQ SCH (09:03)
[2018-04-19] MEDS: LISDEXAMFETAMINE DIMESYLATE 60 MG PO SCH (09:04)
[2018-04-19] MEDS: PANTOPRAZOLE 40 MG/10 ML VIAL IVP SCH (09:04)
[2018-04-19 09:40] VITALS: TEMP 97.9
[2018-04-19 12:11] VITALS: BP 132/70; PULSE 64
--- NOTE | 2018-04-19 13:33 | P.DS ---
Providers Date of admission: 04/14/18 08:32 Expected date of discharge: 04/19/18 Attending physician: Treasure Lovell Consults: medical Management Primary care physician: [facility] Course: Timed Chemotherapy for Burkitts Lymphoma - R-EPOCH and Intrathecal Methotrexate Patient Condition at Discharge: Good Plan - Discharge Summary Discharge Rx Participant: No New Discharge Prescriptions: New Ondansetron HCl [Zofran] 4 mg PO Q4HR PRN #45 tablet PRN Reason: Nausea No Action Lisdexamfetamine Dimesylate [Vyvanse] 60 mg PO QAM Discharge Medication List Lisdexamfetamine Dimesylate [Vyvanse] 60 mg PO QAM 03/31/18 [History] Ondansetron HCl [Zofran] 4 mg PO Q4HR PRN #45 tablet 04/19/18 [Rx] Follow up Appointment(s)/Referral(s): Jennifer Steele ANPBC [Nurse Practitioner] - 04/23/18 4:00 pm (CBC Check) Treasure Lovell MD [STAFF PHYSICIAN] - 04/29/18 1:00 pm (make this appointment when seen Saturday Morning in office) Patient Instructions/Handouts: Ondansetron (By mouth), Nosebleed (GEN), Non- Hodgkin Lymphoma (DC), Eating During Cancer Treatment (DC), Neutropenia (DC), Mouth Care for the Cancer Patient (DC), Thrombocytopenia (DC), Chemo Induced Nausea and Vomiting (GEN), Intrathecal Chemotherapy (DC), Intravenous Chemotherapy (DC) Activity/Diet/Wound Care/Special Instructions: Not to return to work until after 04/26/[address]iscuss[address]charge plan with Dr. Lovell, no prophylaxis at discharge and no plan for Lane stimulating factor per Dr. Lovell, will monitor his blood counts closely as out patient and re-assess at follow-ups, 1-2 times a week. Discharge Disposition: HOME SELF-CARE Pending Studies Pending Results: Physician Attestation: I have discussed the complete history and physical with Author and devloped the impression and plan, agree with above and dictated as a scribe.
--- NOTE | 2018-04-19 16:29 | PN ---
PROGRESS NOTE DATE OF SERVICE: 04/19/2018 This 17-year-old gentleman who was admitted with Burkitt's lymphoma on chemotherapy, is improving significantly. Patient was having back pain yesterday. X-ray are normal. No chest pain. No palpitations. No fever. EXAM: Alert and oriented x3. Pulse 71, blood pressure 130/52, respirations 16, temperature 97.9, pulse ox 97% on room air. HEENT: Conjunctivae normal. Oral mucosa moist. NECK: No jugular venous distention. No lymph node enlargement. CARDIOVASCULAR: S1, S2. RESPIRATORY: Diminished breath sounds at the bases. No rhonchi, no crackles. ABDOMEN: Soft, nontender. LEGS: No swelling. NERVOUS SYSTEM: No focal deficits. LABS: CBC within normal. Sodium 130, potassium 3.6. ASSESSMENT: 1. Burkitt's lymphoma, on high-dose infusional chemotherapy. 2. Back pain for evaluation, possibly musculoskeletal. 3. History of lumbar puncture. 4. Anemia, mild secondary to lymphoma. 5. History of attention deficit disorder/attention deficit hyperactivity disorder. 6. History of nicotine dependence. RECOMMENDATIONS AND DISCUSSION: Recommend to continue current management, continue to monitor, continue symptomatic treatment. Otherwise, Oncology is recommending discharge. I would recommend to follow up closely with Dr. Estrada in the outpatient Clinic in 1-2 weeks or p.r.n. MMMEEL / NAHOMIN: [id number] /
== END 2018-04-19 15:53 | disposition home or self-care (01) | DRG 847 ==
LOC: 3NMEDONC 08:32
PROVIDERS: ADMIT Internal Medicine Hematology & Oncology; ATTEND Internal Medicine Hematology & Oncology
PROC: 00HU33Z Insertion of Infusion Device into Spinal Canal, Percutaneous Approach (ICD-10-PCS; principal; 2018-04-14)
PROC: 3E0R305 Introduction of Other Antineoplastic into Spinal Canal, Percutaneous Approach (ICD-10-PCS; principal; 2018-04-14)
DX: Z51.11 Encounter for antineoplastic chemotherapy (principal); C83.70 Burkitt lymphoma, unspecified site; F90.9 Attention-deficit hyperactivity disorder, unspecified type; M54.5 Low back pain; D63.0 Anemia in neoplastic disease; Z79.899 Other long term (current) drug therapy; Z87.891 Personal history of nicotine dependence
CPT/HCPCS: 62270; 72070; 72100; 80053; 81003; 82945; 84100; 84157; 84550; 85025; 85610; 85730; 88108; 89050

== ENCOUNTER 2018-05-05 11:34 | Inpatient (IN) | payer OTHER ==
[~2018-05-05 11:34] MED LIST changes: +ONDANSETRON 4 MG/2 ML VIAL IVP PRN; +predniSONE 10 MG TAB PO SCH; +predniSONE 50 MG TAB PO SCH
[2018-05-05] MEDS ORDERED: riTUXimab 700 MG in SODIUM CHLORIDE 0.9% 500 ML 500 ML IV NR (12:00)
[2018-05-05] MEDS ORDERED: methylPREDNISolone SOD SUCCI 125 MG/2 ML VIAL IV ONE (12:00)
[2018-05-05] MEDS ORDERED: FAMOTIDINE 20 MG/2 ML VIAL IV SCH (12:00)
[2018-05-05] MEDS ORDERED: ONDANSETRON 16 MG in SODIUM CHLORIDE 0.9% 50 ML IVPB SCH (12:00)
[2018-05-05] MEDS ORDERED: ACETAMINOPHEN TAB 325 MG TAB PO ONE (12:00)
[2018-05-05] MEDS ORDERED: diphenhydrAMINE 50 MG/ML 1 ML VIAL IVP ONE (12:00)
[2018-05-05] MEDS ORDERED: VINCRISTINE SULFATE IV SCH ×9 (18:00)
[2018-05-05] MEDS ORDERED: ETOPOSIDE IV SCH ×8 (18:00)
[2018-05-05] MEDS ORDERED: DOXORUBICIN HCL IV SCH ×9 (18:00)
[2018-05-05] MEDS ORDERED: SODIUM CHLORIDE 0.9% IV SCH ×2 (18:00)
[2018-05-05] MEDS ORDERED: ETOPOSIDE 90 MG in SODIUM CHLORIDE 0.9% 250 ML IV SCH (18:00)
[2018-05-05] MEDS ORDERED: [UNRECOGNIZED DRUG - OTHER] IV SCH ×8 (18:00)
[2018-05-09] MEDS ORDERED: CYCLOPHOSPHAMIDE IV ONE (21:00)
[2018-05-09] MEDS ORDERED: SODIUM CHLORIDE 0.9% IV ONE (21:00)
[2018-05-12] MEDS ORDERED: METHOTREXATE SODIUM (PF) 25 MG/ML 2 ML VIAL INTRATHECA ONE ×2 (06:00→10:00)
[2018-05-12] MEDS: SODIUM CHLORIDE 0.9% 1,000 ML IV SCH ×10 (09:54→13:09)
[2018-05-12 10:21] LABS: Basophils % (A) 1 %; Eosinophils # (A) 0.1 k/uL (0-0.7); Eosinophils % (A) 2 %; HCT 41.9 % (39.0-53.0); HGB 13.5 gm/dL (13.0-17.5); Lymphocytes # (A) 1.4 k/uL (1.0-4.8); Lymphocytes % (A) 29 %; MCH 26.9 pg (25.0-35.0); MCHC 32.2 g/dL (31.0-37.0); MCV 83.6 fL (80.0-100.0); Mean Platelet Volume 6.9; Monocytes # (A) 0.5 k/uL (0-1.0); Monocytes % (A) 9 %; Neutrophils # (A) 2.8 k/uL (1.3-7.7); Neutrophils % (A) 57 %; Platelet Count 255 k/uL (150-450); RBC 5.01 m/uL (4.30-5.90); RDW 13.4 % (11.5-15.5)
[2018-05-12 10:30] LABS: INR 1.1 (<1.2); Prothrombin Time 11.4 sec (9.0-12.0)
[2018-05-12 10:31] LABS: ALT 30 U/L (21-72); AST 20 U/L (17-59); Albumin 4.1 g/dL (3.5-5.0); Alkaline Phosphatase 59 U/L (38-126); Anion Gap 6 mmol/L; Blood Urea Nitrogen 15 mg/dL (9-20); Calcium 9.5 mg/dL (8.4-10.2); Carbon Dioxide 31 mmol/L (22-30); Chloride 102 mmol/L (98-107); Glucose 90 mg/dL (74-99); Potassium 4.5 mmol/L (3.5-5.1); Sodium 139 mmol/L (137-145); Total Bilirubin 0.4 mg/dL (0.2-1.3); Total Protein 6.5 g/dL (6.3-8.2); Uric Acid 5.4 mg/dL (3.5-8.5)
--- NOTE | 2018-05-12 11:38 | FL ---
EXAMINATION TYPE: FL guided lumbar puncture LP DATE OF EXAM: 05/12/2018 HISTORY: Burkitt's lymphoma Maximal barrier technique was utilized. The skin overlying the L3 transverse process was localized u nder fluoroscopy and the overlying skin prepped and draped. Lidocaine used for local anesthesia. 22 -gauge needle was advanced into the thecal sac under fluoroscopic guidance and cerebrospinal fluid wa s noted to return in the hub of the needle. Approximately 5 cc of cerebrospinal fluid were removed p er the referring clinician. A spot image verified needle placement. Referring clinician instilled kaylee motherapeutic agent and flushed. The patient remained in relatively stable condition, the needle was removed. Transient vasovagal res ponse resolved immediately. Hemostasis achieved. No immediate complication. FINDINGS: 47 seconds fluoroscopy time, single image obtained. IMPRESSION: Lumbar puncture for intrathecal chemotherapy administration as described
[2018-05-12] MEDS: predniSONE 50 MG TAB PO SCH ×2 (11:47→21:02)
[2018-05-12] MEDS: predniSONE 10 MG TAB PO SCH ×2 (11:47→21:02)
[2018-05-12] MEDS ORDERED: methylPREDNISolone SOD SUCCI 125 MG/2 ML VIAL IV ONE (12:00)
[2018-05-12] MEDS ORDERED: diphenhydrAMINE 50 MG/ML 1 ML VIAL IVP ONE (12:00)
[2018-05-12] MEDS ORDERED: ACETAMINOPHEN TAB 325 MG TAB PO ONE (12:00)
[2018-05-12] MEDS ORDERED: riTUXimab 700 MG in SODIUM CHLORIDE 0.9% 500 ML 500 ML IV NR (12:00)
--- NOTE | 2018-05-12 13:33 | P.HPIM ---
History of Present Illness H&P Date: 05/12/18 Chief Complaint: Timed Chemotherapy Cycle 2 Burkitt's Lymphoma, admited for prophylactic IT chemo and CIVI treatment with R- EPOCH. Cycle Two Pt is a very pleasant 17 year old male who originally presented with enlarged left submandibular mass, first noted July 2017. It had remained relatively stable in size overall. CT scan of the neck on 09/02/17 revealed enla rged left submandibular node, he was treated with several courses of antibiotics without improvement. 03/04/18 he had FNA of the lesion which revealed atypical lymphocytes. 03/11/18 he had excisional biopsy at [facility], pathology was consistent Burkitt's lymphoma, IHC reactive to cMYC, PAX5, CD20(weak), CD9a, BCL2(patchy), BCL6 and MUM1. CBC, CMP, uric acid, LDH were normal, negative for hepatitis B,C and HIV. 03/29/18 staging PET revealed slight uptake at surgical site, otherwise negative. 03/31/18 bone marrow biopsy was negative for involvement. Pt denied any B-symptoms. Pt PMH is negative, he is otherwise healthy. He completed cycle One of treatment without any major side effects or difficulties. He did complain of back and headache after first intrathecal treatment with cycle one, but this improved as the days continued. His cycle two was delayed one week due to cytopenias, neulasta was not given cycle one. I will defer the addition of this with his primary Oncologist Dr. Lovell. On exam today pt looks well, denies oral irritation, difficulty swallowing, SOB, cough, nausea, indigestion, abd discomfort, changes in bowel or baldder habits. Denied any new masses, rashes or lesions. He is fully ambulatory without c/o, no pain. He is receiving his second intrathecal chemotherapy today. Review of Systems A 14 point review of systems assessed and completed and negative except HPI Past Medical History Past Medical History: Cancer Additional Past Medical History / Comment(s): Burkitt's lymphoma, mono History of Any Multi-Drug Resistant Organisms: None Reported Past Surgical History: Tonsillectomy Additional Past Surgical History / Comment(s): port placed 03/31/18 at [facility]. lt side neck tumor removed/ biopsied 03/10/18 Additional Past Anesthesia/Blood Transfusion Reaction / Comment(s): Never had a transfusion Past Psychological History: ADD/ADHD Smoking Status: Current some day smoker - Past Family History Mother Additional Family Medical History / Comment(s): Pt does not keep in touch with his mother, as far as he knows, she is healthy. Father Additional Family Medical History / Comment(s): Pt does not keep in touch with his father, as far as he knows, he is healthy. Medications and Allergies Home Medications Medication Instructions Recorded Confirmed Type Lisdexamfetamine Dimesylate 60 mg PO QAM 03/31/18 05/12/18 History [Vyvanse] Allergies Allergy/AdvReac Type Severity Reaction Status Date / Time No Known Allergies Allergy Verified 05/12/18 10:46 Physical Exam Vitals: Vital Signs Temp Pulse Resp BP Pulse Ox 05/12/18 11:45 69 18 105/71 99 05/12/18 11:12 79 20 113/66 100 05/12/18 11:11 89 20 106/55 100 05/12/18 11:08 89 20 86/48 100 05/12/18 11:05 83 20 99/53 100 05/12/18 11:01 89 20 126/61 99 05/12/18 10:56 87 20 126/60 100 05/12/18 08:10 97.5 F L 83 18 119/69 99 Intake and Output 05/11/18 05/12/18 05/12/18 22:59 06:59 14:59 Other: Weight 65.521 kg Gen: No acute distress, Alert and Oriented Head: NC, NT Neck: Supple, Trachea Midline, Adenopathy has decreased palpable minmally Mouth: No thrush, Mucus Membranes are dry Lungs: Clear, No Increased Effort Heart: Tachy, Regular Abdomen: Soft, Non-distended, Non tender Extremities: no edema, no rashes Neuro: No sensory or motor deficits noted. Results CBC & Chem 7: 05/12/18 10:02 05/12/18 10:02 Labs: Abnormal Lab Results - Last 24 Hours (Table) 05/12/18 Range/Units 10:02 Carbon Dioxide 31 H (22-30) mmol/L Thrombosis Risk Factor Assmnt - DVT/VTE Prophylaxis DVT/VTE Prophylaxis: Pharmacologic Prophylaxis ordered - Choose All That Apply Any of the Below Risk Factors Present?: Yes Other Risk Factors: Yes Each Risk Factor Represents 2 Points: Malignancy Other congenital or acquired thrombophilia - If yes, enter type in comment: No Thrombosis Risk Factor Assessment Total Risk Factor Score: 2 Thrombosis Risk Factor Assessment Level: Low Risk Assessment and Plan Plan: Assessment and Recommendations: 1. Burkitts Lymphoma: - Here for Cycle Two of R-EPOCH and Prophylaxis Intrathecal Chemotherapy - One week delay in chemotherapy after cycle one due to cytopenias, will defer the addition of neulasta to cycle [address] Lovell patients primary Oncologist - Monitor Closely for Tumor Lysis - Supportive care for symptom control. - Add PPI with high dose Steroids - VTE Prophylaxis as long as platelets remain greater than 50K - Daily CBC, CMP, Uric Acid, Phos, and Mag. Physician Attestation: I have completed the full history and physical and devloped the complete impression and plan agree with above dictation
[2018-05-12] MEDS: FAMOTIDINE 20 MG/2 ML VIAL IV SCH (13:42)
[2018-05-12] MEDS: ONDANSETRON 16 MG in SODIUM CHLORIDE 0.9% 50 ML IVPB SCH (14:28)
[2018-05-12] MEDS: [UNRECOGNIZED DRUG - OTHER] IV SCH (19:09)
[2018-05-12] MEDS: VINCRISTINE SULFATE IV SCH (19:09)
[2018-05-12] MEDS: ETOPOSIDE IV SCH (19:09)
[2018-05-12] MEDS: DOXORUBICIN HCL IV SCH (19:09)
[2018-05-12] MEDS: SENNOSIDES-DOCUSATE SODIUM 1 EACH TAB PO SCH (21:02)
[2018-05-13 06:24] LABS: Basophils % (A) 0 %; Eosinophils % (A) 0 %; HCT 39.4 % (39.0-53.0); Lymphocytes # (A) 0.5 k/uL (1.0-4.8); Lymphocytes % (A) 5 %; MCHC 32.9 g/dL (31.0-37.0); MCV 82.3 fL (80.0-100.0); Mean Platelet Volume 7.4; Monocytes # (A) 0.2 k/uL (0-1.0); Monocytes % (A) 2 %; Neutrophils # (A) 8.7 k/uL (1.3-7.7); Neutrophils % (A) 92 %; Platelet Count 240 k/uL (150-450); RBC 4.79 m/uL (4.30-5.90); RDW 13.6 % (11.5-15.5); WBC 9.4 k/uL (4.0-11.0)
[2018-05-13 06:34] LABS: ALT 31 U/L (21-72); AST 15 U/L (17-59); Albumin 3.5 g/dL (3.5-5.0); Alkaline Phosphatase 56 U/L (38-126); Anion Gap 6 mmol/L; Blood Urea Nitrogen 13 mg/dL (9-20); Calcium 9.6 mg/dL (8.4-10.2); Carbon Dioxide 25 mmol/L (22-30); Chloride 106 mmol/L (98-107); Glucose 119 mg/dL (74-99); LDH 348 U/L (313-618); Magnesium 1.6 mg/dL (1.6-2.3); Phosphorus 3.9 mg/dL (2.5-4.5); Potassium 4.3 mmol/L (3.5-5.1); Sodium 137 mmol/L (137-145); Total Bilirubin 0.6 mg/dL (0.2-1.3); Total Protein 5.8 g/dL (6.3-8.2); Uric Acid 4.6 mg/dL (3.5-8.5)
[2018-05-13 06:36] LABS: INR 1.1 (<1.2); Partial Thromboplastin Time 25.2 sec (22.0-30.0); Prothrombin Time 11.5 sec (9.0-12.0)
[2018-05-13] MEDS: SENNOSIDES-DOCUSATE SODIUM 1 EACH TAB PO SCH (09:47)
[2018-05-13] MEDS: predniSONE 10 MG TAB PO SCH ×2 (09:47→20:38)
[2018-05-13] MEDS: ENOXAPARIN 40 MG/0.4 ML SYRINGE SQ SCH (09:47)
[2018-05-13] MEDS: predniSONE 50 MG TAB PO SCH ×2 (09:47→20:38)
[2018-05-13] MEDS: SODIUM CHLORIDE 0.9% 1,000 ML IV SCH ×3 (13:01→19:52)
--- NOTE | 2018-05-13 13:34 | P.PN ---
Subjective Progress Note Date: 05/13/18 Principal diagnosis: Burkitts Lymphoma Tolerating chemotherapy well so far. No n/v/d/c/ Objective - Vital Signs Vital signs: Vital Signs Temp 97.3 F L 05/13/18 11:38 Pulse 74 05/13/18 11:38 Resp 16 05/13/18 11:38 BP 90/51 05/13/18 11:38 Pulse Ox 96 05/13/18 11:38 Intake & Output 05/12/18 05/13/18 05/13/18 18:59 06:59 18:59 Intake Total 3502.927 6783 Balance 9247.018 5155 Weight 65.521 kg Intake: Intake, IV Titration 1164.166 800 Amount Etoposide 90 mg 200 DOXOrubicin HCL 19 mg vinCRIStine SULFATE 0.75 mg In Sodium Chloride 0.9 % 500 ml 500 ml @ 21.448 mls/hr IV Q24H [facility] Rx#: [id number] Sodium Chloride 0.9% 1, 900 600 000 ml @ 150 mls/hr IV . Q6H40M [facility] Rx#:[id number] riTUXimab 700 mg In 264.166 Sodium Chloride 0.9% 500 ml 500 ml @ Titrate IV . Q0M [facility] Rx#:[id number] Oral 900 Other: Voiding Method Toilet Toilet # Voids 1 - Exam Gen: No acute distress, Alert and Oriented Head: NC, NT Neck: Supple, Trachea Midline, Adenopathy has decreased palpable minmally Mouth: No thrush, Mucus Membranes are dry Lungs: Clear, No Increased Effort Heart: Tachy, Regular Abdomen: Soft, Non-distended, Non tender Extremities: no edema, no rashes Neuro: No sensory or motor deficits noted. - Labs CBC & Chem 7: 05/13/18 05:41 05/13/18 05:41 Labs: Abnormal Lab Results - Last 24 Hours (Table) 05/13/18 05/13/18 Range/Units 05:41 05:41 Neutrophils # 8.7 H (1.3-7.7) k/uL Lymphocytes # 0.5 L (1.0-4.8) k/uL Glucose 119 H (74-99) mg/dL AST 15 L (17-59) U/L Total Protein 5.8 L (6.3-8.2) g/dL Assessment and Plan Plan: Assessment and Recommendations: 1. Burkitts Lymphoma: - Here for Cycle Two of R-EPOCH and Prophylaxis Intrathecal Chemotherapy - One week delay in chemotherapy after cycle one due to cytopenias, add neulasta to cycle 2 - Monitor Closely for Tumor Lysis - Supportive care for symptom control. - Add PPI with high dose Steroids - VTE Prophylaxis as long as platelets remain greater than 50K - Daily CBC, CMP, Uric Acid, Phos, and Mag. - Continue day 2 of treatement and set up for Neulasta at discharge Physician Attestation: I have completed the full history and physical and devloped the complete impression and plan agree with above dictation
[2018-05-13] MEDS: FAMOTIDINE 20 MG/2 ML VIAL IV SCH (14:47)
[2018-05-13] MEDS: ONDANSETRON 16 MG in SODIUM CHLORIDE 0.9% 50 ML IVPB SCH (14:47)
[2018-05-13] MEDS: DOXORUBICIN HCL IV SCH (18:19)
[2018-05-13] MEDS: [UNRECOGNIZED DRUG - OTHER] IV SCH (18:19)
[2018-05-13] MEDS: ETOPOSIDE IV SCH (18:19)
[2018-05-13] MEDS: VINCRISTINE SULFATE IV SCH (18:19)
--- NOTE | 2018-05-13 19:17 | P.PCN ---
Date of Procedure: 05/12/18 Preoperative Diagnosis: Burkitt's lymphoma Postoperative Diagnosis: Burkitt's lymphoma Procedure(s) Performed: Lumbar puncture performed by Interventional Radiologist with administration of prophylactic intrathecal methotrexate Anesthesia: local Estimated Blood Loss (ml): 0 Pathology: none sent Condition: stable Disposition: floor Indications for Procedure: Burkitt's lymphoma Description of Procedure: Patient was brought down from the floor, positioned prone on the procedure table, LP was performed under fluoroscopy with local anesthetic by Interventional Radiologist. 5 cc of cerebrospinal fluid was removed, no specimen was necessary. Double check of chemotherapy was preformed by LOCKST[employer] POCKET [employer]TER and Chemotherapy/[employer] certified RN, all materials were inspected. 12mg of preservative-free, sterile methotrexate, diluted by pharmacy to a total volume of 2.5 cc, was instilled slowly over 2 minutes, 2.5 cc of sterile normal saline and a latex free syringe was used to clear the line. Patient tolerated procedure well. He was returned to the floor in stable condition, vital signs were stable.
[2018-05-14] MEDS: SODIUM CHLORIDE 0.9% 1,000 ML IV SCH ×4 (02:23→22:01)
[2018-05-14] MEDS: ENOXAPARIN 40 MG/0.4 ML SYRINGE SQ SCH (08:34)
[2018-05-14] MEDS: predniSONE 10 MG TAB PO SCH ×2 (08:34→20:28)
[2018-05-14] MEDS: predniSONE 50 MG TAB PO SCH ×2 (08:34→20:28)
[2018-05-14] MEDS: SENNOSIDES-DOCUSATE SODIUM 1 EACH TAB PO SCH (08:35)
[2018-05-14 09:30] LABS: Basophils % (A) 0 %; Eosinophils # (A) 0.1 k/uL (0-0.7); Eosinophils % (A) 1 %; HCT 40.6 % (39.0-53.0); HGB 12.8 gm/dL (13.0-17.5); Lymphocytes # (A) 0.4 k/uL (1.0-4.8); Lymphocytes % (A) 3 %; MCH 26.3 pg (25.0-35.0); MCHC 31.4 g/dL (31.0-37.0); MCV 83.6 fL (80.0-100.0); Mean Platelet Volume 7.7; Monocytes # (A) 0.4 k/uL (0-1.0); Monocytes % (A) 3 %; Neutrophils # (A) 11.4 k/uL (1.3-7.7); Neutrophils % (A) 93 %; Platelet Count 244 k/uL (150-450); RBC 4.86 m/uL (4.30-5.90); RDW 13.8 % (11.5-15.5); WBC 12.3 k/uL (4.0-11.0)
[2018-05-14 09:41] LABS: INR 1.2 (<1.2); Partial Thromboplastin Time 27.8 sec (22.0-30.0); Prothrombin Time 12.2 sec (9.0-12.0)
[2018-05-14 09:47] LABS: ALT 29 U/L (21-72); AST 13 U/L (17-59); Albumin 3.3 g/dL (3.5-5.0); Alkaline Phosphatase 55 U/L (38-126); Anion Gap 5 mmol/L; Blood Urea Nitrogen 11 mg/dL (9-20); Calcium 9.2 mg/dL (8.4-10.2); Carbon Dioxide 28 mmol/L (22-30); Chloride 106 mmol/L (98-107); Glucose 126 mg/dL (74-99); Magnesium 1.6 mg/dL (1.6-2.3); Phosphorus 3.6 mg/dL (2.5-4.5); Potassium 3.9 mmol/L (3.5-5.1); Sodium 139 mmol/L (137-145); Total Bilirubin 0.3 mg/dL (0.2-1.3); Total Protein 5.5 g/dL (6.3-8.2); Uric Acid 3.6 mg/dL (3.5-8.5)
[2018-05-14] MEDS: ONDANSETRON 16 MG in SODIUM CHLORIDE 0.9% 50 ML IVPB SCH (14:58)
[2018-05-14] MEDS: FAMOTIDINE 20 MG/2 ML VIAL IV SCH (14:58)
--- NOTE | 2018-05-14 17:16 | P.PN ---
Subjective Progress Note Date: 05/14/18 Principal diagnosis: Burkitts Lymphoma Tolerating chemotherapy well so far. No n/v/d/c/ No acute complaints. Objective - Vital Signs Vital signs: Vital Signs Temp 97.3 F L 05/14/18 16:06 Pulse 95 05/14/18 16:06 Resp 16 05/14/18 16:06 BP 120/61 05/14/18 16:06 Pulse Ox 97 05/14/18 16:06 Intake & Output 05/13/18 05/14/18 05/14/18 18:59 06:59 18:59 Intake Total 1445 3660 1376 Balance 1445 3660 1376 Intake: Intake, IV Titration 1445 1400 1376 Amount Etoposide 90 mg 195 200 176 DOXOrubicin HCL 19 mg vinCRIStine SULFATE 0.75 mg In Sodium Chloride 0.9 % 500 ml 500 ml @ 21.448 mls/hr IV Q24H [facility] Rx#: [id number] Ondansetron 16 mg In 50 Sodium Chloride 0.9% 50 ml @ 232 mls/hr IVPB Q24H [facility] Rx#:[id number] Sodium Chloride 0.9% 1, 1200 1200 1200 000 ml @ 150 mls/hr IV . Q6H40M [facility] Rx#:[id number] Oral 2260 Other: Voiding Method Toilet Toilet # Voids 2 - Exam Gen: No acute distress, Alert and Oriented Head: NC, NT Neck: Supple, Trachea Midline, Adenopathy has decreased palpable minmally Mouth: No thrush, Mucus Membranes are dry Lungs: Clear, No Increased Effort Heart: Tachy, Regular Abdomen: Soft, Non-distended, Non tender Extremities: no edema, no rashes Neuro: No sensory or motor deficits noted. - Labs CBC & Chem 7: 05/14/18 08:53 05/14/18 08:53 Labs: Abnormal Lab Results - Last 24 Hours (Table) 05/14/18 05/14/18 05/14/18 Range/Units 08:53 08:53 08:53 WBC 12.3 H (4.0-11.0) k/uL Hgb 12.8 L (13.0-17.5) gm/dL Neutrophils # 11.4 H (1.3-7.7) k/uL Lymphocytes # 0.4 L (1.0-4.8) k/uL PT 12.2 H (9.0-12.0) sec INR 1.2 H (<1.2) Glucose 126 H (74-99) mg/dL AST 13 L (17-59) U/L Total Protein 5.5 L (6.3-8.2) g/dL Albumin 3.3 L (3.5-5.0) g/dL Assessment and Plan Plan: Assessment and Recommendations: 1. Burkitts Lymphoma: - Here for Cycle Two of R-EPOCH and Prophylaxis Intrathecal Chemotherapy - One week delay in chemotherapy after cycle one due to cytopenias, add neulasta to cycle 2 - Monitor Closely for Tumor Lysis - Supportive care for symptom control. - Add PPI with high dose Steroids - VTE Prophylaxis as long as platelets remain greater than 50K - Daily CBC, CMP, Uric Acid, Phos, and Mag. - Continue day 3 of treatement and set up for Neulasta at discharge Physician Attestation: I have completed the full history and physical and devloped the complete impression and plan agree with above dictation
[2018-05-14] MEDS: DOXORUBICIN HCL IV SCH (17:47)
[2018-05-14] MEDS: ETOPOSIDE IV SCH (17:47)
[2018-05-14] MEDS: VINCRISTINE SULFATE IV SCH (17:47)
[2018-05-14] MEDS: [UNRECOGNIZED DRUG - OTHER] IV SCH (17:47)
[2018-05-15] MEDS: SODIUM CHLORIDE 0.9% 1,000 ML IV SCH ×3 (04:09→20:55)
[2018-05-15 07:39] LABS: Basophils % (A) 0 %; Eosinophils % (A) 0 %; HCT 39.8 % (39.0-53.0); HGB 12.8 gm/dL (13.0-17.5); Lymphocytes # (A) 0.3 k/uL (1.0-4.8); Lymphocytes % (A) 5 %; MCH 26.7 pg (25.0-35.0); MCHC 32.2 g/dL (31.0-37.0); Mean Platelet Volume 7.9; Monocytes # (A) 0.4 k/uL (0-1.0); Monocytes % (A) 5 %; Neutrophils # (A) 6.9 k/uL (1.3-7.7); Neutrophils % (A) 90 %; Platelet Count 215 k/uL (150-450); RBC 4.79 m/uL (4.30-5.90); RDW 13.7 % (11.5-15.5); WBC 7.7 k/uL (4.0-11.0)
[2018-05-15] MEDS: ENOXAPARIN 40 MG/0.4 ML SYRINGE SQ SCH (07:48)
[2018-05-15] MEDS: PANTOPRAZOLE 40 MG TABLET PO SCH ×2 (07:48→18:01)
[2018-05-15] MEDS: predniSONE 10 MG TAB PO SCH ×2 (07:48→20:54)
[2018-05-15] MEDS: predniSONE 50 MG TAB PO SCH ×2 (07:48→20:54)
[2018-05-15] MEDS: SENNOSIDES-DOCUSATE SODIUM 1 EACH TAB PO SCH (07:48)
[2018-05-15 07:49] LABS: ALT 21 U/L (21-72); AST 11 U/L (17-59); Alkaline Phosphatase 51 U/L (38-126); Anion Gap 4 mmol/L; Blood Urea Nitrogen 9 mg/dL (9-20); Calcium 8.8 mg/dL (8.4-10.2); Carbon Dioxide 29 mmol/L (22-30); Chloride 105 mmol/L (98-107); Glucose 127 mg/dL (74-99); Magnesium 1.6 mg/dL (1.6-2.3); Phosphorus 3.3 mg/dL (2.5-4.5); Potassium 3.7 mmol/L (3.5-5.1); Sodium 138 mmol/L (137-145); Total Bilirubin 0.4 mg/dL (0.2-1.3); Total Protein 5.2 g/dL (6.3-8.2); Uric Acid 3.3 mg/dL (3.5-8.5)
[2018-05-15 08:01] LABS: INR 1.1 (<1.2); Partial Thromboplastin Time 25.8 sec (22.0-30.0); Prothrombin Time 11.9 sec (9.0-12.0)
[2018-05-15] MEDS: ONDANSETRON 16 MG in SODIUM CHLORIDE 0.9% 50 ML IVPB SCH ×3 (13:01→19:08)
[2018-05-15] MEDS: FAMOTIDINE 20 MG/2 ML VIAL IV SCH ×2 (13:01→19:03)
--- NOTE | 2018-05-15 14:17 | P.PN ---
Subjective Progress Note Date: 05/15/18 Principal diagnosis: Burkitts Lymphoma Tolerating chemotherapy No n/v/d/c/ No acute complaints. Bored, he is eating Objective - Vital Signs Vital signs: Vital Signs Temp 98.1 F 05/15/18 12:00 Pulse 88 05/15/18 12:00 Resp 16 05/15/18 12:00 BP 111/55 05/15/18 12:00 Pulse Ox 99 05/15/18 12:00 Intake & Output 05/14/18 05/15/18 05/15/18 18:59 06:59 18:59 Intake Total 1376 2723.032 2470 Balance 1376 2723.032 2470 Intake: Intake, IV Titration 1376 3939.094 4463 Amount Etoposide 90 mg 176 193.032 500 DOXOrubicin HCL 19 mg vinCRIStine SULFATE 0.75 mg In Sodium Chloride 0.9 % 500 ml 500 ml @ 21.448 mls/hr IV Q24H [facility] Rx#: [id number] Ondansetron 16 mg In 50 Sodium Chloride 0.9% 50 ml @ 232 mls/hr IVPB Q24H [facility] Rx#:[id number] Sodium Chloride 0.9% 1, 1200 1350 1200 000 ml @ 150 mls/hr IV . Q6H40M [facility] Rx#:[id number] Oral 1180 720 Other: Voiding Method Toilet Toilet Toilet # Voids 2 3 - Exam Gen: No acute distress, Alert and Oriented Head: NC, NT Neck: Supple, Trachea Midline, Adenopathy has decreased palpable minmally Mouth: No thrush, Mucus Membranes are dry Lungs: Clear, No Increased Effort Heart: Tachy, Regular Abdomen: Soft, Non-distended, Non tender Extremities: no edema, no rashes Neuro: No sensory or motor deficits noted. - Labs CBC & Chem 7: 05/15/18 07:21 05/15/18 07:21 Labs: Abnormal Lab Results - Last 24 Hours (Table) 05/15/18 05/15/18 Range/Units 07:21 07:21 Hgb 12.8 L (13.0-17.5) gm/dL Lymphocytes # 0.3 L (1.0-4.8) k/uL Creatinine 0.58 L (0.66-1.25) mg/dL Glucose 127 H (74-99) mg/dL Uric Acid 3.3 L (3.5-8.5) mg/dL AST 11 L (17-59) U/L Total Protein 5.2 L (6.3-8.2) g/dL Albumin 3.0 L (3.5-5.0) g/dL Assessment and Plan Plan: Assessment and Recommendations: 1. Burkitts Lymphoma: - Here for Cycle Two of R-EPOCH and Prophylaxis Intrathecal Chemotherapy - One week delay in chemotherapy after cycle one due to cytopenias, add neulasta to cycle 2 - Monitor Closely for Tumor Lysis - Supportive care for symptom control. - Add PPI with high dose Steroids - VTE Prophylaxis as long as platelets remain greater than 50K - Daily CBC, CMP, Uric Acid, Phos, and Mag. - Continue day 4 of treatement and set up for Neulasta at discharge - Neulasta on Saturday Physician Attestation: I have completed the full history and physical and devloped the complete impression and plan agree with above dictation
[2018-05-15] MEDS ORDERED: ONDANSETRON 16 MG in SODIUM CHLORIDE 0.9% 50 ML IVPB SCH (15:00)
--- NOTE | 2018-05-15 16:28 | CONS ---
CONSULTATION CHIEF COMPLAINT: Chemotherapy for Burkitt's lymphoma. HISTORY OF PRESENT ILLNESS: This is another scheduled admission for this 17-year-old white male who has been in good health otherwise until a mass metastatic was biopsied and he was found to have Burkitt's lymphoma. He is admitted for a 2nd round of chemotherapy. He has been doing well. He has had essentially no side effects or issues. REVIEW OF SYSTEMS: He has had no fever, chills, difficulty with vision or hearing, headaches, neurologic problems, chest pain, shortness of breath, palpitations, abdominal pain, nausea, vomiting, melena, hematochezia, dysuria, frequency, urgency, hematuria, diabetes, etc. Past medical history, family history and personal and social histories are all otherwise unremarkable or unchanged or normal. PHYSICAL EXAMINATION: Blood pressure is 127/73. Pulse of 82, respirations of 20 and he is afebrile. GENERAL: He appeared to be well developed, well nourished, no acute distress. Skin color is normal. Skin is warm, dry. There are no petechiae, ecchymoses or jaundice. Head, ears, eyes, nose, mouth, and throat were otherwise normal. Chest is clear to auscultation and percussion. The cardiac exam is normal with no rubs. Abdomen is flat, soft, nontender without visceromegaly or masses. Extremities are normal. Neurological is intact. IMPRESSION: Burkitt's lymphoma. RECOMMENDATIONS: None at this time. He is doing well and chemotherapy seems to be well tolerated. MMODL / IJN: [id number] /
[2018-05-15] MEDS: VINCRISTINE SULFATE IV SCH (19:45)
[2018-05-15] MEDS: ETOPOSIDE IV SCH (19:45)
[2018-05-15] MEDS: [UNRECOGNIZED DRUG - OTHER] IV SCH (19:45)
[2018-05-15] MEDS: DOXORUBICIN HCL IV SCH (19:45)
[2018-05-15] MEDS ORDERED: diphenhydrAMINE 25 MG CAP PO PRN (19:59)
[2018-05-16] MEDS ORDERED: diphenhydrAMINE 25 MG CAP PO STA (01:33)
[2018-05-16] MEDS: SODIUM CHLORIDE 0.9% 1,000 ML IV SCH ×3 (01:34→16:25)
[2018-05-16 08:09] LABS: Basophils % (A) 0 %; Eosinophils % (A) 1 %; HCT 38.4 % (39.0-53.0); HGB 12.4 gm/dL (13.0-17.5); Lymphocytes # (A) 0.4 k/uL (1.0-4.8); Lymphocytes % (A) 6 %; MCH 26.8 pg (25.0-35.0); MCHC 32.4 g/dL (31.0-37.0); MCV 82.7 fL (80.0-100.0); Mean Platelet Volume 7.9; Monocytes # (A) 0.3 k/uL (0-1.0); Monocytes % (A) 4 %; Neutrophils % (A) 89 %; Platelet Count 203 k/uL (150-450); RBC 4.65 m/uL (4.30-5.90); RDW 13.7 % (11.5-15.5); WBC 6.8 k/uL (4.0-11.0)
[2018-05-16 08:19] LABS: ALT 29 U/L (21-72); AST 12 U/L (17-59); Albumin 2.9 g/dL (3.5-5.0); Alkaline Phosphatase 45 U/L (38-126); Anion Gap 6 mmol/L; Blood Urea Nitrogen 9 mg/dL (9-20); Calcium 8.9 mg/dL (8.4-10.2); Carbon Dioxide 29 mmol/L (22-30); Chloride 103 mmol/L (98-107); Glucose 112 mg/dL (74-99); INR 1.1 (<1.2); Magnesium 1.7 mg/dL (1.6-2.3); Partial Thromboplastin Time 26.4 sec (22.0-30.0); Phosphorus 3.4 mg/dL (2.5-4.5); Potassium 3.6 mmol/L (3.5-5.1); Prothrombin Time 11.9 sec (9.0-12.0); Sodium 138 mmol/L (137-145); Total Bilirubin 0.4 mg/dL (0.2-1.3); Uric Acid 2.8 mg/dL (3.5-8.5)
[2018-05-16] MEDS: predniSONE 50 MG TAB PO SCH ×2 (08:42→20:23)
[2018-05-16] MEDS: ENOXAPARIN 40 MG/0.4 ML SYRINGE SQ SCH (08:42)
[2018-05-16] MEDS: PANTOPRAZOLE 40 MG TABLET PO SCH ×2 (08:42→16:25)
[2018-05-16] MEDS: predniSONE 10 MG TAB PO SCH ×2 (08:42→20:24)
[2018-05-16] MEDS: SENNOSIDES-DOCUSATE SODIUM 1 EACH TAB PO SCH (08:42)
--- NOTE | 2018-05-16 15:10 | P.PN ---
Subjective Progress Note Date: 05/16/18 Principal diagnosis: Burkitts Lymphoma Tolerating chemotherapy No n/v/d/c/ No acute complaints. Bored, he is eating difficult time sleeping. We discussed the addition of neulasta and taking claritin daily Objective - Vital Signs Vital signs: Vital Signs Temp 98.1 F 05/16/18 12:30 Pulse 77 05/16/18 12:30 Resp 16 05/16/18 12:30 BP 117/55 05/16/18 12:30 Pulse Ox 97 05/16/18 12:30 Intake & Output 05/15/18 05/16/18 05/16/18 18:59 06:59 18:59 Intake Total 2710 2393.032 240 Balance 2710 2393.032 240 Intake: Intake, IV Titration 1750 1593.032 Amount Etoposide 90 mg 500 193.032 DOXOrubicin HCL 19 mg vinCRIStine SULFATE 0.75 mg In Sodium Chloride 0.9 % 500 ml 500 ml @ 21.448 mls/hr IV Q24H [facility] Rx#: [id number] Ondansetron 16 mg In 50 Sodium Chloride 0.9% 50 ml @ 232 mls/hr IVPB Q24H [facility] Rx#:[id number] Ondansetron 16 mg In 50 Sodium Chloride 0.9% 50 ml @ 232 mls/hr IVPB Q24H [facility] Rx#:[id number] Sodium Chloride 0.9% 1, 1200 1350 000 ml @ 150 mls/hr IV . Q6H40M [facility] Rx#:[id number] Oral 960 800 240 Other: Voiding Method Toilet Toilet Toilet # Voids 3 2 - Exam Gen: No acute distress, Alert and Oriented Head: NC, NT Neck: Supple, Trachea Midline, Adenopathy has decreased palpable minmally Mouth: No thrush, Mucus Membranes are dry Lungs: Clear, No Increased Effort Heart: Tachy, Regular Abdomen: Soft, Non-distended, Non tender Extremities: no edema, no rashes Neuro: No sensory or motor deficits noted. - Labs CBC & Chem 7: 05/16/18 07:32 05/16/18 07:32 Labs: Abnormal Lab Results - Last 24 Hours (Table) 05/16/18 05/16/18 Range/Units 07:32 07:32 Hgb 12.4 L (13.0-17.5) gm/dL Hct 38.4 L (39.0-53.0) % Lymphocytes # 0.4 L (1.0-4.8) k/uL Creatinine 0.58 L (0.66-1.25) mg/dL Glucose 112 H (74-99) mg/dL Uric Acid 2.8 L (3.5-8.5) mg/dL AST 12 L (17-59) U/L Total Protein 5.0 L (6.3-8.2) g/dL Albumin 2.9 L (3.5-5.0) g/dL Assessment and Plan (1) Burkitt lymphoma Current Visit: No Status: Acute Priority: High Code(s): C83.70 - BURKITT LYMPHOMA, UNSPECIFIED SITE SNOMED Code(s): 984672061 Plan: Assessment and Recommendations: 1. Burkitts Lymphoma: - Here for Cycle Two of R-EPOCH and Prophylaxis Intrathecal Chemotherapy - One week delay in chemotherapy after cycle one due to cytopenias, add neulasta to cycle 2 - Monitor Closely for Tumor Lysis - Supportive care for symptom control. - Add PPI with high dose Steroids - VTE Prophylaxis as long as platelets remain greater than 50K - Daily CBC, CMP, Uric Acid, Phos, and Mag. - Continue day 4 of treatment and set up for Neulasta at discharge - Neulasta on Saturday
[2018-05-16] MEDS: FAMOTIDINE 20 MG/2 ML VIAL IV SCH (19:28)
[2018-05-16] MEDS: ONDANSETRON 16 MG in SODIUM CHLORIDE 0.9% 50 ML IVPB SCH (19:28)
[2018-05-16] MEDS ORDERED: CYCLOPHOSPHAMIDE IV ONE (21:00)
[2018-05-16] MEDS ORDERED: SODIUM CHLORIDE 0.9% IV ONE (21:00)
[2018-05-17] MEDS: SODIUM CHLORIDE 0.9% 1,000 ML IV SCH ×2 (04:27→08:29)
[2018-05-17 07:31] LABS: Basophils % (A) 0 %; Eosinophils % (A) 0 %; HCT 38.4 % (39.0-53.0); HGB 12.5 gm/dL (13.0-17.5); Lymphocytes # (A) 0.4 k/uL (1.0-4.8); Lymphocytes % (A) 7 %; MCH 26.3 pg (25.0-35.0); MCHC 32.6 g/dL (31.0-37.0); MCV 80.6 fL (80.0-100.0); Mean Platelet Volume 7.7; Monocytes # (A) 0.1 k/uL (0-1.0); Monocytes % (A) 2 %; Neutrophils # (A) 5.1 k/uL (1.3-7.7); Neutrophils % (A) 90 %; Platelet Count 210 k/uL (150-450); RBC 4.76 m/uL (4.30-5.90); RDW 13.5 % (11.5-15.5); WBC 5.6 k/uL (4.0-11.0)
[2018-05-17 07:41] LABS: INR 1.1 (<1.2); Partial Thromboplastin Time 25.8 sec (22.0-30.0); Prothrombin Time 11.7 sec (9.0-12.0)
[2018-05-17 07:55] LABS: ALT 29 U/L (21-72); AST 15 U/L (17-59); Albumin 3.1 g/dL (3.5-5.0); Alkaline Phosphatase 47 U/L (38-126); Anion Gap 6 mmol/L; Blood Urea Nitrogen 10 mg/dL (9-20); Calcium 8.9 mg/dL (8.4-10.2); Carbon Dioxide 29 mmol/L (22-30); Chloride 101 mmol/L (98-107); Glucose 106 mg/dL (74-99); Magnesium 1.8 mg/dL (1.6-2.3); Phosphorus 3.6 mg/dL (2.5-4.5); Potassium 3.4 mmol/L (3.5-5.1); Sodium 136 mmol/L (137-145); Total Bilirubin 0.6 mg/dL (0.2-1.3); Total Protein 5.1 g/dL (6.3-8.2); Uric Acid 2.2 mg/dL (3.5-8.5)
[2018-05-17 08:22] VITALS: BP 125/72; PULSE 64; RESP 14; TEMP 97.7
--- NOTE | 2018-05-17 08:23 | P.DS ---
Providers Date of admission: 05/12/18 08:07 Expected date of discharge: 05/17/18 Attending physician: Treasure Lovell Primary care physician: Bud [facility]utohven [facility] Course: The patient was admitted for cycle #2 of R-EPO CH for his diagnosis of Burkitt's lymphoma. He completed treatment, with monitoring of labs and clinical condition. He did not have any untoward side effects. He also received intrathecal chemotherapy, which he tolerated well. He did have several episodes of drop in heart rate into the 40 range, with resting or sleeping, but remained asymptomatic. This was not felt to be significant in this young male with no cardiac history. After completion of treatment as his condition was stable, it was felt that he could be discharged home. Procedures: High dose infusional chemotherapy Lumbar puncture with intrathecal chemotherapy Patient Condition at Discharge: Fair Plan - Discharge Summary Discharge Rx Participant: Yes New Discharge Prescriptions: No Action Lisdexamfetamine Dimesylate [Vyvanse] 60 mg PO QAM Discharge Medication List Lisdexamfetamine Dimesylate [Vyvanse] 60 mg PO QAM 03/31/18 [History] Follow up Appointment(s)/Referral(s): Treasure Lovell MD [STAFF PHYSICIAN] - As Needed (Patient to call office in a.m. 05/19/18 to set an appointment on the same day for Neulasta, and additional office visits) Discharge Disposition: HOME SELF-CARE
[2018-05-17] MEDS: ENOXAPARIN 40 MG/0.4 ML SYRINGE SQ SCH (08:29)
[2018-05-17] MEDS: SENNOSIDES-DOCUSATE SODIUM 1 EACH TAB PO SCH (08:31)
[2018-05-17] MEDS: PANTOPRAZOLE 40 MG TABLET PO SCH (08:32)
--- NOTE | 2018-05-17 16:30 | PN ---
PROGRESS NOTE DATE OF SERVICE: 05/16/2018. CHIEF COMPLAINT: Burkitt's lymphoma. HISTORY OF PRESENT ILLNESS: This gentleman is doing well, but he is having a lot of trouble sleeping. He has had no fever, chills, chest pain, headache, abdominal pain, nausea, etc. PHYSICAL EXAM: Normal. Chest is clear. Abdomen is soft, nontender. IMPRESSION: Burkitt's lymphoma. PLAN: Continue chemotherapy and he is slated to go home tomorrow. MMODL / IJN: [id number] /
--- NOTE | 2018-05-17 16:39 | PN ---
PROGRESS NOTE DATE OF SERVICE: 05/17/2018 CHIEF COMPLAINT: Burkitt's lymphoma. HISTORY OF PRESENT ILLNESS: The patient is doing well, feeling good. He is going home today. PHYSICAL EXAM: Completely normal. Lymph nodes are not palpable. IMPRESSION: Burkitt's lymphoma. PLAN: Home today. MMODL / IJN: [id number] /
== END 2018-05-17 09:50 | disposition home or self-care (01) | DRG 847 ==
LOC: 3NMEDONC 05-12 08:07
PROVIDERS: ADMIT Internal Medicine Hematology & Oncology; ATTEND Internal Medicine Hematology & Oncology
PROC: 3E0R305 Introduction of Other Antineoplastic into Spinal Canal, Percutaneous Approach (ICD-10-PCS; principal; 2018-05-12)
DX: Z51.11 Encounter for antineoplastic chemotherapy (principal); C83.70 Burkitt lymphoma, unspecified site; F90.9 Attention-deficit hyperactivity disorder, unspecified type; F17.200 Nicotine dependence, unspecified, uncomplicated; Z79.899 Other long term (current) drug therapy
CPT/HCPCS: 62270; 80053; 83615; 83735; 84100; 84550; 85025; 85610; 85730; 96450

== ENCOUNTER 2018-06-02 08:04 | Inpatient (IN) | payer OTHER ==
[~2018-06-02 08:04] MED LIST changes: -predniSONE 10 MG TAB PO SCH; -predniSONE 50 MG TAB PO SCH
[2018-06-02 09:52] LABS: Basophils % (A) 1 %; Eosinophils # (A) 0.1 k/uL (0-0.7); Eosinophils % (A) 1 %; HCT 34.9 % (39.0-53.0); HGB 12.3 gm/dL (13.0-17.5); Lymphocytes # (A) 1.6 k/uL (1.0-4.8); Lymphocytes % (A) 23 %; MCHC 35.3 g/dL (31.0-37.0); MCV 79.3 fL (80.0-100.0); Mean Platelet Volume 7.8; Monocytes # (A) 0.7 k/uL (0-1.0); Monocytes % (A) 11 %; Neutrophils # (A) 4.4 k/uL (1.3-7.7); Neutrophils % (A) 63 %; Platelet Count 168 k/uL (150-450); RDW 15.4 % (11.5-15.5); WBC 6.9 k/uL (4.0-11.0)
[2018-06-02 10:14] LABS: ALT 51 U/L (21-72); AST 19 U/L (17-59); Albumin 3.5 g/dL (3.5-5.0); Alkaline Phosphatase 79 U/L (38-126); Anion Gap 7 mmol/L; Blood Urea Nitrogen 18 mg/dL (9-20); Calcium 9.2 mg/dL (8.4-10.2); Carbon Dioxide 30 mmol/L (22-30); Chloride 103 mmol/L (98-107); Glucose 112 mg/dL (74-99); Potassium 3.9 mmol/L (3.5-5.1); Sodium 140 mmol/L (137-145); Total Bilirubin 0.3 mg/dL (0.2-1.3); Total Protein 5.8 g/dL (6.3-8.2); Uric Acid 5.7 mg/dL (3.5-8.5)
[2018-06-02] MEDS: SODIUM CHLORIDE 0.9% 1,000 ML IV SCH ×3 (11:05→20:58)
[2018-06-02] MEDS ORDERED: methylPREDNISolone SOD SUCCI 125 MG/2 ML VIAL IV ONE (11:30)
[2018-06-02] MEDS ORDERED: diphenhydrAMINE 50 MG/ML 1 ML VIAL IVP ONE (11:30)
[2018-06-02] MEDS ORDERED: ACETAMINOPHEN TAB 325 MG TAB PO ONE (11:30)
[2018-06-02] MEDS ORDERED: riTUXimab 700 MG in SODIUM CHLORIDE 0.9% 500 ML 500 ML IV ONE (12:00)
[2018-06-02] MEDS: predniSONE 10 MG TAB PO SCH ×2 (12:47→20:57)
[2018-06-02] MEDS: predniSONE 50 MG TAB PO SCH ×2 (12:47→20:57)
--- NOTE | 2018-06-02 12:47 | FL ---
EXAMINATION TYPE: FL guided lumbar puncture LP DATE OF EXAM: 06/02/2018 COMPARISON: NONE HISTORY: Chemotherapeutic injection TECHNIQUE: Fluoroscopy. FINDINGS: 52sec fl time, lumbar punture with 5cc CSF aspirated by Dr Iniguez and chemotherapy inject ed by Dona Garrett Informed consent was obtained and all the patient's questions were answered. The standard sterile douglas hnique was utilized as well as appropriate local anesthesia with 5 cc lidocaine injected. At the L3-4 level a spinal needle was introduced into the thecal sac and 5 cc of CSF was obtained and a test tub e. Chemotherapeutic agent was then injected by Dona garrett. Patient tolerated the procedure well and left the department in stable condition. IMPRESSION: As Above.
[2018-06-02] MEDS: FAMOTIDINE 20 MG/2 ML VIAL IV SCH (17:43)
[2018-06-02] MEDS: ONDANSETRON 16 MG in SODIUM CHLORIDE 0.9% 50 ML IVPB SCH (17:43)
--- NOTE | 2018-06-02 18:01 | P.HPIM ---
History of Present Illness H&P Date: 06/02/18 Chief Complaint: Burkitts Lymphoma Burkitt's Lymphoma, admited for prophylactic IT chemo and CIVI treatment with R- EPOCH. Cycle Three Pt is a very pleasant 17 year old male who originally presented with enlarged left submandibular mass, first noted July 2017. It had remained relatively stable in size overall. CT scan of the neck on 09/02/17 revealed enlarged left submandibular node, he was treated with several courses of antibiotics without improvement. 03/04/18 he had FNA of the lesion which revealed atypical lymphocytes. 03/11/18 he had excisional biopsy at [facility], pathology was consistent Burkitt's lymphoma, IHC reactive to cMYC, PAX5, CD20 (weak), CD9a, BCL2(patchy), BCL6 and MUM1. CBC, CMP, uric acid, LDH were normal, negative for hepatitis B,C and HIV. 03/29/18 staging PET revealed slight uptake at surgical site, otherwise negative. 03/31/18 bone marrow biopsy was negative for involvement. Pt denied any B-symptoms. Pt PMH is negative, he is otherwise healthy. He completed cycle One of treatment without any major side effects or difficulties. He did complain of back and headache after first intrathecal treatment with cycle one, but this improved as the days continued. His cycle two was delayed one week due to cytopenias, neulasta was not given cycle one. I will defer the addition of this with his primary Oncologist Dr. Lovell. On exam today pt looks well, denies oral irritation, difficulty swallowing, SOB, cough, nausea, indigestion, abd discomfort, changes in bowel or baldder habits. Denied any new masses, rashes or lesions. He is fully ambulatory without c/o, no pain. He is receiving his second intrathecal chemotherapy today. On admission he states he has had some bleeding from nose and diarrhea. Influenza negative, c diff pending. He did receive Intrathecal chemo today and start IV. He is afebrile and CBC and CMp has been checked and stable. Review of Systems A 14 point review of systems assessed and completed and all neg except HPI Past Medical History Past Medical History: Cancer Additional Past Medical History / Comment(s): Burkitt's lymphoma, mono, currently having diarrhea and occasional epistaxix. History of Any Multi-Drug Resistant Organisms: None Reported Past Surgical History: Tonsillectomy Additional Past Surgical History / Comment(s): port placed 03/31/[address] [facility]. lt side neck tumor removed/ biopsied 03/10/18 Additional Past Anesthesia/Blood Transfusion Reaction / Comment(s): Never had a transfusion Smoking Status: Current some day smoker - Past Family History Mother Additional Family Medical History / Comment(s): Pt does not keep in touch with his mother, as far as he knows, she is healthy. Father Additional Family Medical History / Comment(s): Pt does not keep in touch with his father, as far as he knows, he is healthy. Medications and Allergies Home Medications Medication Instructions Recorded Confirmed Type Lisdexamfetamine Dimesylate 60 mg PO QAM 03/31/18 06/02/18 History [Vyvanse] Allergies Allergy/AdvReac Type Severity Reaction Status Date / Time No Known Allergies Allergy Verified 06/02/18 09:55 Physical Exam Vitals: Vital Signs Temp Pulse Resp BP Pulse Ox 06/02/18 16:50 105/57 06/02/18 16:35 124/52 06/02/18 16:20 124/52 06/02/18 16:00 98.2 F 71 16 87/45 96 06/02/18 15:40 66 95/51 06/02/18 15:35 73 92/55 06/02/18 15:20 69 86/45 06/02/18 15:05 70 104/57 06/02/18 14:50 72 108/58 06/02/18 14:35 70 108/55 06/02/18 14:20 70 105/57 06/02/18 14:05 77 110/59 06/02/18 13:50 69 112/59 06/02/18 13:35 68 109/57 06/02/18 11:00 97.6 F 79 18 111/53 98 06/02/18 08:25 97.7 F 84 17 104/53 96 Intake and Output 06/02/18 06/02/18 06/02/18 06:59 14:59 22:59 Intake Total 664.75 295.2 Balance 664.75 295.2 Intake: Intake, IV Titration 664.75 295.2 Amount Sodium Chloride 0.9% 1, 600 000 ml @ 150 mls/hr IV . Q6H40M [facility] Rx#:[id number] riTUXimab 700 mg In 64.75 295.2 Sodium Chloride 0.9% 500 ml 500 ml @ 0 mls/hr IV . Q0M [facility] Rx#:[id number] Gen: No acute distress, Alert and Oriented Head: NC, NT Neck: Supple, Trachea Midline, Adenopathy has decreased palpable minmally Mouth: No thrush, Mucus Membranes are dry Lungs: Clear, No Increased Effort Heart: Tachy, Regular Abdomen: Soft, Non-distended, Non tender Extremities: no edema, no rashes Neuro: No sensory or motor deficits noted. Results CBC & Chem 7: 06/02/18 09:34 06/02/18 09:34 Labs: Abnormal Lab Results - Last 24 Hours (Table) 06/02/18 06/02/18 Range/Units 09:34 09:34 Hgb 12.3 L (13.0-17.5) gm/dL Hct 34.9 L (39.0-53.0) % MCV 79.3 L (80.0-100.0) fL Glucose 112 H (74-99) mg/dL Total Protein 5.8 L (6.3-8.2) g/dL Thrombosis Risk Factor Assmnt - DVT/VTE Prophylaxis DVT/VTE Prophylaxis: Pharmacologic Prophylaxis ordered - Choose All That Apply Any of the Below Risk Factors Present?: Yes Other Risk Factors: Yes Each Risk Factor Represents 2 Points: Malignancy Other congenital or acquired thrombophilia - If yes, enter type in comment: No Thrombosis Risk Factor Assessment Total Risk Factor Score: 2 Thrombosis Risk Factor Assessment Level: Low Risk Assessment and Plan Plan: Assessment and Plan (1) Burkitt lymphoma Current Visit: No Status: Acute Priority: High Code(s): C83.70 - BURKITT LYMPHOMA, UNSPECIFIED SITE SNOMED Code(s): 894261016 Plan: Assessment and Recommendations: 1. Burkitts Lymphoma: - Here for Cycle Three of R-EPOCH and Prophylaxis Intrathecal Chemotherapy - Neulasta after cycle 3 in office - Monitor Closely for Tumor Lysis - Supportive care for symptom control. - Add PPI with high dose Steroids - VTE Prophylaxis as long as platelets remain greater than 50K - Daily CBC, CMP, Uric Acid, Phos, and Mag. - Continue day 1 of treatment and set up for Neulasta at discharge - Neulasta on Saturday
[2018-06-02] MEDS: VINCRISTINE SULFATE IV SCH (18:22)
[2018-06-02] MEDS: DOXORUBICIN HCL IV SCH (18:22)
[2018-06-02] MEDS: [UNRECOGNIZED DRUG - OTHER] IV SCH (18:22)
[2018-06-02] MEDS: ETOPOSIDE IV SCH (18:22)
[2018-06-03] MEDS: SODIUM CHLORIDE 0.9% 1,000 ML IV SCH ×3 (04:05→18:45)
[2018-06-03] MEDS: ENOXAPARIN 40 MG/0.4 ML SYRINGE SQ SCH (09:16)
[2018-06-03] MEDS: PANTOPRAZOLE SODIUM 40 MG GRANULE PKT PO SCH (09:16)
[2018-06-03] MEDS: predniSONE 50 MG TAB PO SCH ×2 (09:16→21:05)
[2018-06-03] MEDS: predniSONE 10 MG TAB PO SCH ×2 (09:16→21:05)
[2018-06-03 09:20] LABS: ALT 43 U/L (21-72); AST 15 U/L (17-59); Albumin 3.3 g/dL (3.5-5.0); Alkaline Phosphatase 66 U/L (38-126); Anion Gap 6 mmol/L; Blood Urea Nitrogen 13 mg/dL (9-20); Carbon Dioxide 24 mmol/L (22-30); Chloride 108 mmol/L (98-107); Glucose 125 mg/dL (74-99); Magnesium 1.5 mg/dL (1.6-2.3); Potassium 3.9 mmol/L (3.5-5.1); Sodium 138 mmol/L (137-145); Total Bilirubin 0.3 mg/dL (0.2-1.3); Total Protein 5.4 g/dL (6.3-8.2); Uric Acid 4.3 mg/dL (3.5-8.5)
[2018-06-03] MEDS ORDERED: MAGNESIUM SULFATE-D5W PMX 1 GM in DEXTROSE/WATER 1 100ML.BAG IVPB ONE (10:00)
[2018-06-03 10:08] LABS: Basophils % (A) 0 %; Eosinophils % (A) 0 %; HCT 36.1 % (39.0-53.0); HGB 11.8 gm/dL (13.0-17.5); Lymphocytes # (A) 0.4 k/uL (1.0-4.8); Lymphocytes % (A) 3 %; MCH 26.6 pg (25.0-35.0); MCHC 32.6 g/dL (31.0-37.0); MCV 81.7 fL (80.0-100.0); Monocytes # (A) 0.3 k/uL (0-1.0); Monocytes % (A) 2 %; Neutrophils # (A) 11.1 k/uL (1.3-7.7); Neutrophils % (A) 94 %; Platelet Count 181 k/uL (150-450); RBC 4.42 m/uL (4.30-5.90); RDW 14.7 % (11.5-15.5); WBC 11.8 k/uL (4.0-11.0)
--- NOTE | 2018-06-03 12:22 | P.PN ---
Subjective Progress Note Date: 06/03/18 Principal diagnosis: Burkitts cycle 3 Chemo No acute complaints, afebrile tolerating thus far Objective - Vital Signs Vital signs: Vital Signs Temp 98 F 06/03/18 08:15 Pulse 77 06/03/18 08:15 Resp 18 06/03/18 08:15 BP 90/53 06/03/18 08:15 Pulse Ox 100 06/03/18 08:15 Intake & Output 06/02/18 06/03/18 06/03/18 18:59 06:59 18:59 Intake Total 959.95 3040 Balance 959.95 3040 Intake: Intake, IV Titration 959.95 1960 Amount Etoposide 90 mg 160 DOXOrubicin HCL 19 mg vinCRIStine SULFATE 0.75 mg In Sodium Chloride 0.9 % 500 ml 500 ml @ 21.448 mls/hr IV Q24H [facility] Rx#: [id number] Sodium Chloride 0.9% 1, 600 1800 000 ml @ 150 mls/hr IV . Q6H40M [facility] Rx#:[id number] riTUXimab 700 mg In 359.95 Sodium Chloride 0.9% 500 ml 500 ml @ 0 mls/hr IV . Q0M [facility] Rx#:[id number] Oral 1080 Other: # Voids 1 - Exam Gen: No acute distress, Alert and Oriented Head: NC, NT Neck: Supple, Trachea Midline, Adenopathy has decreased palpable minmally Mouth: No thrush, Mucus Membranes are dry Lungs: Clear, No Increased Effort Heart: Tachy, Regular Abdomen: Soft, Non-distended, Non tender Extremities: no edema, no rashes Neuro: No sensory or motor deficits noted. - Labs CBC & Chem 7: 06/03/18 08:04 06/03/18 08:04 Labs: Abnormal Lab Results - Last 24 Hours (Table) 06/03/18 06/03/18 Range/Units 08:04 08:04 WBC 11.8 H (4.0-11.0) k/uL Hgb 11.8 L (13.0-17.5) gm/dL Hct 36.1 L (39.0-53.0) % Neutrophils # 11.1 H (1.3-7.7) k/uL Lymphocytes # 0.4 L (1.0-4.8) k/uL Chloride 108 H (98-107) mmol/L Glucose 125 H (74-99) mg/dL Magnesium 1.5 L (1.6-2.3) mg/dL AST 15 L (17-59) U/L Total Protein 5.4 L (6.3-8.2) g/dL Albumin 3.3 L (3.5-5.0) g/dL Assessment and Plan Plan: Assessment and Plan (1) Burkitt lymphoma Current Visit: No Status: Acute Priority: High Code(s): C83.70 - BURKITT LYMPHOMA, UNSPECIFIED SITE SNOMED Code(s): 678228788 Burkitts Lymphoma: - Here for Cycle Three of R-EPOCH and Prophylaxis Intrathecal Chemotherapy - Neulasta after cycle 3 in office - Monitor Closely for Tumor Lysis - Supportive care for symptom control. - Add PPI with high dose Steroids - VTE Prophylaxis as long as platelets remain greater than 50K - Daily CBC, CMP, Uric Acid, Phos, and Mag. - Continue day 2 of treatment and set up for Neulasta at discharge - Neulasta on Saturday Hypomagnesia: - Supp today - Recheck in am Encourage up and out of bed PPI and VTE prophylaxis Physician Attest: I have completed the full history and physical, I have devloped the complete impression and plan and agree with above dictation by Jennifer Steele NP dictated as a scribe
[2018-06-03] MEDS: FAMOTIDINE 20 MG/2 ML VIAL IV SCH (15:57)
[2018-06-03] MEDS: ONDANSETRON 16 MG in SODIUM CHLORIDE 0.9% 50 ML IVPB SCH (15:57)
[2018-06-03] MEDS: ETOPOSIDE IV SCH (18:45)
[2018-06-03] MEDS: [UNRECOGNIZED DRUG - OTHER] IV SCH (18:45)
[2018-06-03] MEDS: DOXORUBICIN HCL IV SCH (18:45)
[2018-06-03] MEDS: VINCRISTINE SULFATE IV SCH (18:45)
[2018-06-04] MEDS: SODIUM CHLORIDE 0.9% 1,000 ML IV SCH ×4 (00:14→20:19)
[2018-06-04] MEDS: PANTOPRAZOLE SODIUM 40 MG GRANULE PKT PO SCH (08:49)
[2018-06-04] MEDS: predniSONE 50 MG TAB PO SCH ×2 (08:49→20:19)
[2018-06-04] MEDS: predniSONE 10 MG TAB PO SCH ×2 (08:49→20:19)
[2018-06-04] MEDS: ENOXAPARIN 40 MG/0.4 ML SYRINGE SQ SCH (08:49)
[2018-06-04 09:49] LABS: Basophils % (A) 0 %; Eosinophils % (A) 0 %; HCT 34.5 % (39.0-53.0); HGB 11.3 gm/dL (13.0-17.5); Lymphocytes # (A) 0.5 k/uL (1.0-4.8); Lymphocytes % (A) 4 %; MCH 26.6 pg (25.0-35.0); MCHC 32.7 g/dL (31.0-37.0); MCV 81.2 fL (80.0-100.0); Mean Platelet Volume 7.4; Monocytes # (A) 0.7 k/uL (0-1.0); Monocytes % (A) 6 %; Neutrophils # (A) 9.8 k/uL (1.3-7.7); Neutrophils % (A) 89 %; Platelet Count 217 k/uL (150-450); RBC 4.26 m/uL (4.30-5.90)
[2018-06-04 09:53] LABS: ALT 41 U/L (21-72); AST 16 U/L (17-59); Albumin 2.8 g/dL (3.5-5.0); Alkaline Phosphatase 55 U/L (38-126); Anion Gap 4 mmol/L; Blood Urea Nitrogen 8 mg/dL (9-20); Calcium 8.6 mg/dL (8.4-10.2); Carbon Dioxide 26 mmol/L (22-30); Chloride 107 mmol/L (98-107); Glucose 123 mg/dL (74-99); Potassium 3.9 mmol/L (3.5-5.1); Sodium 137 mmol/L (137-145); Total Bilirubin 0.3 mg/dL (0.2-1.3); Total Protein 4.9 g/dL (6.3-8.2); Uric Acid 3.3 mg/dL (3.5-8.5)
--- NOTE | 2018-06-04 13:04 | P.PN ---
Subjective Progress Note Date: 06/04/18 Principal diagnosis: Burkitts cycle 3 Chemo No acute complaints, afebrile tolerating thus far Blood counts remain stable Objective - Vital Signs Vital signs: Vital Signs Temp 97.4 F L 06/04/18 11:58 Pulse 75 06/04/18 11:58 Resp 16 06/04/18 11:58 BP 114/57 06/04/18 11:58 Pulse Ox 95 06/04/18 11:58 Intake & Output 06/03/18 06/04/18 06/04/18 18:59 06:59 18:59 Intake Total 1376 3080 Balance 1376 3080 Intake: Intake, IV Titration 1376 2000 Amount Etoposide 90 mg 176 200 DOXOrubicin HCL 19 mg vinCRIStine SULFATE 0.75 mg In Sodium Chloride 0.9 % 500 ml 500 ml @ 21.448 mls/hr IV Q24H [facility] Rx#: [id number] Sodium Chloride 0.9% 1, 1200 1800 000 ml @ 150 mls/hr IV . Q6H40M [facility] Rx#:[id number] Oral 1080 Other: # Voids 1 - Exam Gen: No acute distress, Alert and Oriented Head: NC, NT Neck: Supple, Trachea Midline, Adenopathy has decreased palpable minmally Mouth: No thrush, Mucus Membranes are dry Lungs: Clear, No Increased Effort Heart: Tachy, Regular Abdomen: Soft, Non-distended, Non tender Extremities: no edema, no rashes Neuro: No sensory or motor deficits noted. - Labs CBC & Chem 7: 06/05/18 08:22 06/05/18 08:22 Labs: Abnormal Lab Results - Last 24 Hours (Table) 06/04/18 06/04/18 Range/Units 08:30 08:30 RBC 4.26 L (4.30-5.90) m/uL Hgb 11.3 L (13.0-17.5) gm/dL Hct 34.5 L (39.0-53.0) % Neutrophils # 9.8 H (1.3-7.7) k/uL Lymphocytes # 0.5 L (1.0-4.8) k/uL BUN 8 L (9-20) mg/dL Creatinine 0.62 L (0.66-1.25) mg/dL Glucose 123 H (74-99) mg/dL Uric Acid 3.3 L (3.5-8.5) mg/dL AST 16 L (17-59) U/L Total Protein 4.9 L (6.3-8.2) g/dL Albumin 2.8 L (3.5-5.0) g/dL Assessment and Plan Plan: Assessment and Plan (1) Burkitt lymphoma Current Visit: No Status: Acute Priority: High Code(s): C83.70 - BURKITT LYMPHOMA, UNSPECIFIED SITE SNOMED Code(s): 890506789 Burkitts Lymphoma: - Here for Cycle Three of R-EPOCH and Prophylaxis Intrathecal Chemotherapy - Neulasta after cycle 3 in office - Monitor Closely for Tumor Lysis - Supportive care for symptom control. - Add PPI with high dose Steroids - VTE Prophylaxis as long as platelets remain greater than 50K - Daily CBC, CMP, Uric Acid, Phos, and Mag. - Continue day 3 of treatment and set up for Neulasta at discharge - Neulasta on Saturday Hypomagnesia: - Recheck today, protocol supp 06/03/18 Encourage up and out of bed PPI and VTE prophylaxis Physician Attest: I have completed the full history and physical, I have devloped the complete impression and plan and agree with above dictation by Jennifer Steele NP dictated as a scribe
[2018-06-04] MEDS: FAMOTIDINE 20 MG/2 ML VIAL IV SCH (17:00)
[2018-06-04] MEDS: ONDANSETRON 16 MG in SODIUM CHLORIDE 0.9% 50 ML IVPB SCH (17:00)
[2018-06-04] MEDS: ETOPOSIDE IV SCH (18:12)
[2018-06-04] MEDS: DOXORUBICIN HCL IV SCH (18:12)
[2018-06-04] MEDS: [UNRECOGNIZED DRUG - OTHER] IV SCH (18:12)
[2018-06-04] MEDS: VINCRISTINE SULFATE IV SCH (18:12)
[2018-06-05] MEDS: SODIUM CHLORIDE 0.9% 1,000 ML IV SCH ×4 (02:28→21:13)
[2018-06-05] MEDS: predniSONE 50 MG TAB PO SCH ×2 (08:19→21:05)
[2018-06-05] MEDS: PANTOPRAZOLE SODIUM 40 MG GRANULE PKT PO SCH (08:19)
[2018-06-05] MEDS: predniSONE 10 MG TAB PO SCH ×2 (08:19→21:05)
[2018-06-05] MEDS: ENOXAPARIN 40 MG/0.4 ML SYRINGE SQ SCH (08:19)
[2018-06-05 09:18] LABS: Basophils % (A) 0 %; Eosinophils % (A) 0 %; HCT 35.6 % (39.0-53.0); HGB 11.7 gm/dL (13.0-17.5); Lymphocytes # (A) 0.4 k/uL (1.0-4.8); Lymphocytes % (A) 5 %; MCHC 32.9 g/dL (31.0-37.0); MCV 82.2 fL (80.0-100.0); Mean Platelet Volume 7.8; Monocytes # (A) 0.3 k/uL (0-1.0); Monocytes % (A) 4 %; Neutrophils # (A) 6.8 k/uL (1.3-7.7); Neutrophils % (A) 90 %; Platelet Count 231 k/uL (150-450); RBC 4.33 m/uL (4.30-5.90); RDW 15.3 % (11.5-15.5); WBC 7.6 k/uL (4.0-11.0)
[2018-06-05 09:45] LABS: ALT 35 U/L (21-72); AST 14 U/L (17-59); Alkaline Phosphatase 52 U/L (38-126); Blood Urea Nitrogen 8 mg/dL (9-20); Chloride 104 mmol/L (98-107); Glucose 117 mg/dL (74-99); Magnesium 1.7 mg/dL (1.6-2.3); Potassium 3.7 mmol/L (3.5-5.1); Sodium 138 mmol/L (137-145); Total Bilirubin 0.4 mg/dL (0.2-1.3); Total Protein 4.9 g/dL (6.3-8.2); Uric Acid 3.3 mg/dL (3.5-8.5)
[2018-06-05 10:54] LABS: Anion Gap 8 mmol/L; Carbon Dioxide 26 mmol/L (22-30)
[2018-06-05] MEDS: ONDANSETRON 16 MG in SODIUM CHLORIDE 0.9% 50 ML IVPB SCH (16:06)
[2018-06-05] MEDS: FAMOTIDINE 20 MG/2 ML VIAL IV SCH (16:06)
[2018-06-05] MEDS: [UNRECOGNIZED DRUG - OTHER] IV SCH (17:54)
[2018-06-05] MEDS: DOXORUBICIN HCL IV SCH (17:54)
[2018-06-05] MEDS: ETOPOSIDE IV SCH (17:54)
[2018-06-05] MEDS: VINCRISTINE SULFATE IV SCH (17:54)
--- NOTE | 2018-06-05 23:01 | P.PN ---
Subjective Progress Note Date: 06/05/18 Principal diagnosis: Burkitts cycle 3 Chemo Tolerating Cycle Three well, remains afebrile, diarrhea has improved. No further epistaxis. Objective - Vital Signs Vital signs: Vital Signs Temp 98.3 F 06/05/18 20:00 Pulse 89 06/05/18 20:00 Resp 16 06/05/18 20:00 BP 119/60 06/05/18 20:00 Pulse Ox 97 06/05/18 20:00 Intake & Output 06/05/18 06/05/18 06/06/18 06:59 18:59 06:59 Intake Total 2922.94 1399 Balance 2922.94 1399 Intake: Intake, IV Titration 1542.94 1399 Amount Etoposide 90 mg 192.94 199 DOXOrubicin HCL 19 mg vinCRIStine SULFATE 0.75 mg In Sodium Chloride 0.9 % 500 ml 500 ml @ 21.448 mls/hr IV Q24H [facility] Rx#: [id number] Sodium Chloride 0.9% 1, 1350 1200 000 ml @ 150 mls/hr IV . Q6H40M [facility] Rx#:[id number] Oral 1380 Other: Voiding Method Toilet # Voids 1 # Bowel Movements 1 - Exam Gen: No acute distress, Alert and Oriented Head: NC, NT Neck: Supple, Trachea Midline, Adenopathy has decreased palpable minmally Mouth: No thrush, Mucus Membranes are dry Lungs: Clear, No Increased Effort Heart: Tachy, Regular Abdomen: Soft, Non-distended, Non tender Extremities: no edema, no rashes Neuro: No sensory or motor deficits noted. - Labs CBC & Chem 7: 06/05/18 08:22 06/05/18 08:22 Labs: Abnormal Lab Results - Last 24 Hours (Table) 06/05/18 06/05/18 Range/Units 08:22 08:22 Hgb 11.7 L (13.0-17.5) gm/dL Hct 35.6 L (39.0-53.0) % Lymphocytes # 0.4 L (1.0-4.8) k/uL BUN 8 L (9-20) mg/dL Creatinine 0.59 L (0.66-1.25) mg/dL Glucose 117 H (74-99) mg/dL Uric Acid 3.3 L (3.5-8.5) mg/dL AST 14 L (17-59) U/L Total Protein 4.9 L (6.3-8.2) g/dL Albumin 3.0 L (3.5-5.0) g/dL Assessment and Plan Plan: Assessment and Plan (1) Burkitt lymphoma Current Visit: No Status: Acute Priority: High Code(s): C83.70 - BURKITT LYMPHOMA, UNSPECIFIED SITE SNOMED Code(s): 056279617 Burkitts Lymphoma: - Here for Cycle Three of R-EPOCH and Prophylaxis Intrathecal Chemotherapy - Neulasta after cycle 3 in office - Monitor Closely for Tumor Lysis - Supportive care for symptom control. - Add PPI with high dose Steroids - VTE Prophylaxis as long as platelets remain greater than 50K - Daily CBC, CMP, Uric Acid, Phos, and Mag. - Continue day 4 of treatment and set up for Neulasta at discharge - Neulasta on Saturday Hypomagnesia: - Recheck today, protocol supp 06/03/18 Encourage up and out of bed PPI and VTE prophylaxis Physician Attest: I have completed the full history and physical, I have devloped the complete impression and plan and agree with above dictation by Jennifer Steele NP dictated as a scribe
[2018-06-06] MEDS: SODIUM CHLORIDE 0.9% 1,000 ML IV SCH ×3 (03:07→16:14)
[2018-06-06] MEDS: ENOXAPARIN 40 MG/0.4 ML SYRINGE SQ SCH (08:48)
[2018-06-06] MEDS: predniSONE 10 MG TAB PO SCH ×2 (08:48→20:25)
[2018-06-06] MEDS: predniSONE 50 MG TAB PO SCH ×2 (08:48→20:25)
[2018-06-06] MEDS: PANTOPRAZOLE SODIUM 40 MG GRANULE PKT PO SCH (08:48)
[2018-06-06 09:43] LABS: Basophils % (A) 0 %; Eosinophils % (A) 1 %; HCT 38.3 % (39.0-53.0); HGB 12.3 gm/dL (13.0-17.5); Lymphocytes # (A) 0.6 k/uL (1.0-4.8); Lymphocytes % (A) 9 %; MCH 26.6 pg (25.0-35.0); MCHC 32.1 g/dL (31.0-37.0); MCV 82.8 fL (80.0-100.0); Mean Platelet Volume 7.7; Monocytes # (A) 0.2 k/uL (0-1.0); Monocytes % (A) 3 %; Neutrophils # (A) 6.6 k/uL (1.3-7.7); Neutrophils % (A) 87 %; Platelet Count 261 k/uL (150-450); RBC 4.63 m/uL (4.30-5.90); RDW 15.1 % (11.5-15.5); WBC 7.6 k/uL (4.0-11.0)
[2018-06-06 09:55] LABS: ALT 40 U/L (21-72); AST 16 U/L (17-59); Albumin 3.6 g/dL (3.5-5.0); Alkaline Phosphatase 59 U/L (38-126); Anion Gap 4 mmol/L; Blood Urea Nitrogen 11 mg/dL (9-20); Calcium 9.1 mg/dL (8.4-10.2); Carbon Dioxide 30 mmol/L (22-30); Chloride 102 mmol/L (98-107); Glucose 131 mg/dL (74-99); Potassium 3.6 mmol/L (3.5-5.1); Sodium 136 mmol/L (137-145); Total Bilirubin 0.6 mg/dL (0.2-1.3); Total Protein 5.6 g/dL (6.3-8.2); Uric Acid 2.6 mg/dL (3.5-8.5)
[2018-06-06] MEDS ORDERED: SODIUM CHLORIDE 0.9% IV ONE (16:00)
[2018-06-06] MEDS ORDERED: CYCLOPHOSPHAMIDE IV ONE (16:00)
[2018-06-06] MEDS: FAMOTIDINE 20 MG/2 ML VIAL IV SCH (16:14)
[2018-06-06] MEDS: ONDANSETRON 16 MG in SODIUM CHLORIDE 0.9% 50 ML IVPB SCH (16:14)
--- NOTE | 2018-06-06 17:29 | P.PN ---
Subjective Progress Note Date: 06/06/18 Principal diagnosis: Burkitts cycle 3 Chemo No acute complaints, afebrile tolerating thus far Blood counts remain stable Objective - Vital Signs Vital signs: Vital Signs Temp 97.7 F 06/06/18 15:55 Pulse 96 06/06/18 15:55 Resp 17 06/06/18 15:55 BP 120/68 06/06/18 15:55 Pulse Ox 97 06/06/18 15:55 Intake & Output 06/05/18 06/06/18 06/06/18 18:59 06:59 18:59 Intake Total 1399 2722.94 1400 Balance 1399 2722.94 1400 Intake: Intake, IV Titration 1399 1542.94 1400 Amount Etoposide 90 mg 199 192.94 200 DOXOrubicin HCL 19 mg vinCRIStine SULFATE 0.75 mg In Sodium Chloride 0.9 % 500 ml 500 ml @ 21.448 mls/hr IV Q24H [facility] Rx#: [id number] Sodium Chloride 0.9% 1, 1200 1350 1200 000 ml @ 150 mls/hr IV . Q6H40M [facility] Rx#:[id number] Oral 1180 Other: Voiding Method Toilet Toilet # Voids 1 - Exam Gen: No acute distress, Alert and Oriented Head: NC, NT Neck: Supple, Trachea Midline, Adenopathy has decreased palpable minmally Mouth: No thrush, Mucus Membranes are dry Lungs: Clear, No Increased Effort Heart: Tachy, Regular Abdomen: Soft, Non-distended, Non tender Extremities: no edema, no rashes Neuro: No sensory or motor deficits noted. 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 - PPI with high dose Steroids - VTE Prophylaxis as long as platelets remain greater than 50K - Daily CBC, CMP, Uric Acid, Phos, and Mag. - Continue day 4 of treatment and set up for Neulasta at discharge - Neulasta on Saturday Hypomagnesia: - Daily mag Encourage up and out of bed PPI and VTE prophylaxis PLAN: DISCHARGE Home after chemotherapy completed Physician Attest: I have completed the full history and physical, I have devloped the complete impression and plan and agree with above dictation by Jennifer Steele NP dictated as a scribe
[2018-06-06 20:30] VITALS: PULSE 95; RESP 16
[2018-06-07] MEDS: SODIUM CHLORIDE 0.9% 1,000 ML IV SCH ×2 (05:20→09:02)
[2018-06-07 05:46] VITALS: BP 111/75; TEMP 98.1
[2018-06-07 07:19] LABS: Basophils % (A) 0 %; Eosinophils % (A) 0 %; HGB 11.5 gm/dL (13.0-17.5); Lymphocytes # (A) 0.4 k/uL (1.0-4.8); Lymphocytes % (A) 7 %; MCH 27.1 pg (25.0-35.0); MCV 82.2 fL (80.0-100.0); Mean Platelet Volume 7.5; Monocytes # (A) 0.2 k/uL (0-1.0); Monocytes % (A) 3 %; Neutrophils # (A) 4.9 k/uL (1.3-7.7); Neutrophils % (A) 89 %; Platelet Count 246 k/uL (150-450); RBC 4.25 m/uL (4.30-5.90); RDW 14.4 % (11.5-15.5); WBC 5.5 k/uL (4.0-11.0)
[2018-06-07 07:32] LABS: ALT 40 U/L (21-72); AST 15 U/L (17-59); Albumin 3.1 g/dL (3.5-5.0); Alkaline Phosphatase 51 U/L (38-126); Anion Gap 5 mmol/L; Blood Urea Nitrogen 13 mg/dL (9-20); Carbon Dioxide 29 mmol/L (22-30); Chloride 102 mmol/L (98-107); Glucose 112 mg/dL (74-99); Potassium 3.4 mmol/L (3.5-5.1); Sodium 136 mmol/L (137-145); Total Bilirubin 0.6 mg/dL (0.2-1.3); Total Protein 5.1 g/dL (6.3-8.2); Uric Acid 2.5 mg/dL (3.5-8.5)
[2018-06-07] MEDS: ENOXAPARIN 40 MG/0.4 ML SYRINGE SQ SCH (09:02)
[2018-06-07] MEDS: PANTOPRAZOLE SODIUM 40 MG GRANULE PKT PO SCH (09:02)
[2018-06-07] MEDS ORDERED: POTASSIUM CHLORIDE ER 20 MEQ TAB.ER PO STA (09:12)
== END 2018-06-07 10:35 | disposition home or self-care (01) | DRG 847 ==
LOC: 3NMEDONC 08:04
PROVIDERS: ADMIT Internal Medicine Hematology & Oncology; ATTEND Internal Medicine Hematology & Oncology
PROC: 00HU33Z Insertion of Infusion Device into Spinal Canal, Percutaneous Approach (ICD-10-PCS; principal; 2018-06-02)
PROC: 3E0R305 Introduction of Other Antineoplastic into Spinal Canal, Percutaneous Approach (ICD-10-PCS; 2018-06-02)
DX: Z51.11 Encounter for antineoplastic chemotherapy (principal); C83.71 Burkitt lymphoma, lymph nodes of head, face, and neck; E83.42 Hypomagnesemia; F17.200 Nicotine dependence, unspecified, uncomplicated; Z71.6 Tobacco abuse counseling; Z79.899 Other long term (current) drug therapy
CPT/HCPCS: 62270; 80053; 83735; 84550; 85025; 87502

== ENCOUNTER 2018-06-23 07:51 | Inpatient (IN) | payer OTHER ==
[2018-06-23] MEDS ORDERED: ONDANSETRON 4 MG/2 ML VIAL IVP PRN (08:00)
[2018-06-23] MEDS ORDERED: METHOTREXATE SODIUM (PF) 25 MG/ML 2 ML VIAL INTRATHECA ONE (10:00)
[2018-06-23] MEDS: SODIUM CHLORIDE 0.9% 1,000 ML IV SCH ×3 (10:15→20:08)
[2018-06-23 10:24] LABS: ALT 52 U/L (21-72); AST 21 U/L (17-59); Albumin 4.1 g/dL (3.5-5.0); Alkaline Phosphatase 87 U/L (38-126); Anion Gap 6 mmol/L; Blood Urea Nitrogen 17 mg/dL (9-20); Calcium 9.5 mg/dL (8.4-10.2); Carbon Dioxide 28 mmol/L (22-30); Chloride 105 mmol/L (98-107); Glucose 81 mg/dL (74-99); Sodium 139 mmol/L (137-145); Total Bilirubin 0.3 mg/dL (0.2-1.3); Total Protein 6.3 g/dL (6.3-8.2); Uric Acid 5.5 mg/dL (3.5-8.5)
[2018-06-23 10:27] LABS: Basophils % (A) 1 %; Eosinophils % (A) 0 %; HCT 35.9 % (39.0-53.0); Lymphocytes # (A) 1.9 k/uL (1.0-4.8); Lymphocytes % (A) 21 %; MCH 27.9 pg (25.0-35.0); MCHC 33.4 g/dL (31.0-37.0); MCV 83.7 fL (80.0-100.0); Mean Platelet Volume 6.9; Monocytes # (A) 0.7 k/uL (0-1.0); Monocytes % (A) 7 %; Neutrophils # (A) 6.1 k/uL (1.3-7.7); Neutrophils % (A) 68 %; Platelet Count 197 k/uL (150-450); RBC 4.29 m/uL (4.30-5.90); RDW 15.7 % (11.5-15.5); WBC 8.9 k/uL (4.0-11.0)
--- NOTE | 2018-06-23 12:06 | FL ---
EXAMINATION TYPE: FL guided lumbar puncture LP DATE OF EXAM: 06/23/2018 COMPARISON: NONE HISTORY: Chemotherapeutic injection for Burkitt's lymphoma. TECHNIQUE: Fluoroscopy. PROCEDURE: 23 sec fl time, lumbar puncture with 5cc CSF aspirated by Dr Shine and chemotherapy injecte d by Dona Busch. 2 fluoroscopic images were saved. Informed consent was obtained and all the patient's questions were answered. Preprocedural timeout wa s performed. The standard sterile technique was utilized as well as appropriate local anesthesia with 7 cc lidocai ne injected. At the L3-4 level a spinal needle was introduced into the thecal sac and 5 cc of clear C SF was obtained and a test tube. Chemotherapeutic agent was then injected by Dona Busch. Patient to lerated the procedure well and left the department in stable condition. IMPRESSION: As Above.
[2018-06-23] MEDS ORDERED: ACETAMINOPHEN TAB 325 MG TAB PO ONE (13:00)
[2018-06-23] MEDS ORDERED: diphenhydrAMINE 50 MG/ML 1 ML VIAL IVP ONE (13:00)
[2018-06-23] MEDS ORDERED: methylPREDNISolone SOD SUCCI 125 MG/2 ML VIAL IV ONE (13:00)
--- NOTE | 2018-06-23 13:13 | P.PCN ---
Date of Procedure: 06/23/18 Preoperative Diagnosis: Burkitt's lymphoma Postoperative Diagnosis: Burkitt's lymphoma Procedure(s) Performed: Fluoroscopy-guided lumbar puncture with intrathecal chemotherapy administration Estimated Blood Loss (ml): 0 Pathology: none sent Condition: stable Disposition: floor Indications for Procedure: Intrathecal prophylaxis Description of Procedure: Patient was brought to procedure suite, placed prone, Dr. Shine performed fluoroscopy guided lumbar puncture. 5 mL of cerebrospinal fluid was removed. Intrathecal methotrexate dose of 12 mg was diluted to a total of 2.5 mL by Pharmacy, sterile, preservative free MTX was checked at the bedside with oncology certified registered nurse (lot [id number], 11/2019). Methotrexate was instilled via lumbar puncture catheter over 3 minutes. Catheter was then flushed over 2 minutes with 2.5 mL of sterile normal saline in a latex free syringe. Lumbar puncture needle was discontinued by radiologist. All materials were placed in chemo safety bag for disposal. Patient tolerated procedure well, denied nausea, RICE or pain. No blood loss. Vital signs remained stable through procedure.
[2018-06-23] MEDS: predniSONE 50 MG TAB PO SCH ×2 (13:33→20:03)
[2018-06-23] MEDS: predniSONE 10 MG TAB PO SCH ×2 (13:33→20:04)
[2018-06-23] MEDS: FAMOTIDINE 20 MG/2 ML VIAL IV SCH (13:33)
[2018-06-23] MEDS ORDERED: riTUXimab 700 MG in SODIUM CHLORIDE 0.9% 500 ML 500 ML IV ONE (14:00)
[2018-06-23] MEDS: ONDANSETRON 16 MG in SODIUM CHLORIDE 0.9% 50 ML IVPB SCH (14:15)
--- NOTE | 2018-06-23 17:29 | P.HPIM ---
History of Present Illness H&P Date: 06/23/18 Chief Complaint: Admit for continuous IV infusion chemotherapy for Burkitt's lymphoma Mr. King is a very pleasant 18 year old male who presented in July 2017 with enlarged left submandibular mass. CT neck on 09/02/17 revealed enlarged left submandibular node, treated with several courses of antibiotics without improvement. 03/04/18 he had FNA of the lesion which revealed atypical lymphocytes, 03/11/18 he had excisional biopsy at [facility], pathology was consistent Burkitt's lymphoma, IHC reactive to cMYC, PAX5, CD20(weak), CD9a, BCL2(patchy), BCL6 and MUM1. CBC, CMP, uric acid, LDH were normal, negative for hepatitis B,C and HIV. 03/29/18 staging PET revealed slight uptake at surgical site, otherwise negative. 03/31/18 bone marrow biopsy was negative for involvement. Pt denied any B- symptoms. He is here today for cycle #4 of R-EPOCH with prophylactic intrathecal chemotherapy administration. Patient has done well, other than cycle 2 being delayed one week because of cytopenias. Patient has received Neulasta with subsequent treatments without any further complications. On admit today patient denies fever, oral irritation, difficulty swallowing, SOB, cough, nausea, indigestion, abd discomfort, changes in bowel or baldder habits. No new masses, rashes or lesions. He is fully ambulatory without c/o, no pain. He is very tired today and would just like to sleep. Review of Systems 14 point review of systems is negative except as stated in history of present illness Past Medical History Past Medical History: Cancer, Renal Disease Additional Past Medical History / Comment(s): Burkitt's lymphoma, mono, recent kidney stone-pt passed on his own and hypokalemia, occasional epistaxix. History of Any Multi-Drug Resistant Organisms: None Reported Past Surgical History: Tonsillectomy Additional Past Surgical History / Comment(s): port placed 03/31/18 at [facility]. lt side neck tumor removed/ biopsied 03/10/18 Additional Past Anesthesia/Blood Transfusion Reaction / Comment(s): Never had a transfusion Past Psychological History: No Psychological Hx Reported Smoking Status: Current some day smoker Past Alcohol Use History: None Reported Past Drug Use History: None Reported - Past Family History Mother Additional Family Medical History / Comment(s): Pt does not keep in touch with his mother, as far as he knows, she is healthy. Father Additional Family Medical History / Comment(s): Pt does not keep in touch with his father, as far as he knows, he is healthy. Medications and Allergies Home Medications Medication Instructions Recorded Confirmed Type Lisdexamfetamine Dimesylate 60 mg PO QAM 03/31/18 06/23/18 History [Vyvanse] Acetaminophen Tab [Tylenol] 1,000 mg PO Q8H PRN 06/23/18 06/23/18 History Allergies Allergy/AdvReac Type Severity Reaction Status Date / Time No Known Allergies Allergy Verified 06/23/18 09:12 Physical Exam Vitals: Vital Signs Temp Pulse Resp BP Pulse Ox 06/23/18 16:00 97.9 F 79 14 107/62 99 06/23/18 13:50 71 118/70 97 06/23/18 13:42 71 111/62 99 06/23/18 13:19 72 100/42 98 06/23/18 12:34 76 117/71 99 06/23/18 12:19 76 111/69 99 06/23/18 12:04 97.9 F 71 115/74 100 06/23/18 12:00 97.6 F 78 16 115/74 100 06/23/18 11:47 74 16 116/73 100 06/23/18 11:40 76 110/64 98 06/23/18 11:25 86 104/73 06/23/18 11:16 80 16 126/72 98 06/23/18 08:20 97.7 F 60 16 91/44 99 Intake and Output 06/23/18 06/23/18 06/23/18 06:59 14:59 22:59 Intake Total 600 46.467 Balance 600 46.467 Intake: Intake, IV Titration 600 46.467 Amount Sodium Chloride 0.9% 1, 600 000 ml @ 150 mls/hr IV . Q6H40M [facility] Rx#:[id number] riTUXimab 700 mg In 46.467 Sodium Chloride 0.9% 500 ml 500 ml @ 0 mls/hr IV . Q0M [facility] Rx#:[id number] Other: Voiding Method Toilet Weight 67.4 kg - Constitutional General appearance: average body habitus, cooperative, no acute distress - EENT Eyes: anicteric sclerae, EOMI ENT: hearing grossly normal, normal oropharynx - Neck Neck: no lymphadenopathy - Respiratory Respiratory: bilateral: CTA - Cardiovascular Rhythm: regular Heart sounds: normal: S1, S2 Abnormal Heart Sounds: no systolic murmur, no diastolic murmur, no rub, no S3 Gallop, no S4 Gallop, no click, no other leg Peripheral Edema: bilateral: None - Gastrointestinal General gastrointestinal: no absent bowel sounds, no decreased bowel sounds, no distended, no hepatomegaly, no hyperactive bowel sounds, normal bowel sounds, no organomegaly, no rigid, no scaphoid, soft, no splenomegaly, no tenderness, no umbilical hernia, no ventral hernia - Integumentary Integumentary: normal turgor, pale - Neurologic Neurologic: CNII-XII intact - Musculoskeletal Musculoskeletal: strength equal bilaterally - Psychiatric Psychiatric: A&O x's 3, appropriate affect, intact judgment & insight Results CBC & Chem 7: 06/23/18 10:16 06/23/18 09:50 Labs: Abnormal Lab Results - Last 24 Hours (Table) 06/23/18 Range/Units 10:16 RBC 4.29 L (4.30-5.90) m/uL Hgb 12.0 L (13.0-17.5) gm/dL Hct 35.9 L (39.0-53.0) % RDW 15.7 H (11.5-15.5) % Thrombosis Risk Factor Assmnt - DVT/VTE Prophylaxis DVT/VTE Prophylaxis: Pharmacologic Prophylaxis ordered - Choose All That Apply Any of the Below Risk Factors Present?: Yes Other Risk Factors: Yes Each Risk Factor Represents 2 Points: Malignancy Other congenital or acquired thrombophilia - If yes, enter type in comment: No Thrombosis Risk Factor Assessment Total Risk Factor Score: 2 Thrombosis Risk Factor Assessment Level: Low Risk Assessment and Plan (1) Burkitt lymphoma Narrative/Plan: Admit for cycle #4 CIVI chemotherapy Prophylactic intrathecal chemotherapy administered this a.m. Supportive medications ordered Labs daily I&O, vital sign monitoring, GI and DVT prophylaxis Daily follow-up Current Visit: Yes Status: Acute Priority: High Code(s): C83.70 - BURKITT LYMPHOMA, UNSPECIFIED SITE SNOMED Code(s): 808712113
[2018-06-23] MEDS: [UNRECOGNIZED DRUG - OTHER] IV SCH (20:03)
[2018-06-23] MEDS: DOXORUBICIN HCL IV SCH (20:03)
[2018-06-23] MEDS: ETOPOSIDE IV SCH (20:03)
[2018-06-23] MEDS: VINCRISTINE SULFATE IV SCH (20:03)
[2018-06-24] MEDS: SODIUM CHLORIDE 0.9% 1,000 ML IV SCH ×4 (03:50→23:29)
[2018-06-24] MEDS: predniSONE 10 MG TAB PO SCH ×2 (10:41→21:00)
[2018-06-24] MEDS: predniSONE 50 MG TAB PO SCH ×2 (10:41→21:00)
--- NOTE | 2018-06-24 11:38 | P.PN ---
Subjective Progress Note Date: 06/24/18 Principal diagnosis: Admit cycle #4 CIVI R-EPOCH for Burkitt's Lymphoma In follow-up today patient is sleeping, he denies headache, dizziness, nausea, vomiting, oral irritation, appetite is fair, no shortness of breath, cough, abdominal pain or bloating, acute changes in bowel or bladder habits, bleeding or pain. He is independently ambulatory Objective - Vital Signs Vital signs: Vital Signs Temp 97.9 F 06/24/18 07:59 Pulse 81 06/24/18 07:59 Resp 16 06/24/18 08:00 BP 100/49 06/24/18 07:59 Pulse Ox 96 06/24/18 07:59 Intake & Output 06/23/18 06/24/18 06/24/18 18:59 06:59 18:59 Intake Total 208.079 1780 Balance 984.171 7018 Weight 67.4 kg 71.5 kg Intake: Intake, IV Titration 941.000 600 Amount Sodium Chloride 0.9% 1, 600 600 000 ml @ 150 mls/hr IV . Q6H40M [facility] Rx#:[id number] riTUXimab 700 mg In 341.000 Sodium Chloride 0.9% 500 ml 500 ml @ 0 mls/hr IV . Q0M [facility] Rx#:[id number] Oral 1200 Other: Voiding Method Toilet Toilet Toilet # Voids 1 - Constitutional General appearance: Present: average body habitus, cooperative, no acute distress - EENT Eyes: Present: anicteric sclerae, EOMI ENT: Present: hearing grossly normal, normal oropharynx - Respiratory Respiratory: bilateral: CTA - Cardiovascular Rhythm: regular Heart sounds: normal: S1, S2 Abnormal Heart Sounds: Absent: systolic murmur, diastolic murmur, rub, S3 Gallop, S4 Gallop, click, other - Peripheral edema leg Peripheral Edema: bilateral: None - Gastrointestinal General gastrointestinal: Present: normal bowel sounds, soft - Integumentary Integumentary: Present: normal turgor, pale - Neurologic Neurologic: Present: CNII-XII intact - Musculoskeletal Musculoskeletal: Present: strength equal bilaterally - Psychiatric Psychiatric: Present: A&O x's 3, appropriate affect, intact judgment & insight - Labs CBC & Chem 7: 06/23/18 10:16 06/23/18 09:50 Assessment and Plan (1) Burkitt lymphoma Narrative/Plan: Admitted for cycle #4 CIVI chemotherapy Supportive medications ordered, no acute c/o Labs daily I&O, vital sign monitoring, GI and DVT prophylaxis Daily follow-up Current Visit: Yes Status: Acute Priority: High Code(s): C83.70 - BURKITT LYMPHOMA, UNSPECIFIED SITE SNOMED Code(s): 731676666
[2018-06-24] MEDS: FAMOTIDINE 20 MG/2 ML VIAL IV SCH (12:14)
[2018-06-24] MEDS: ENOXAPARIN 40 MG/0.4 ML SYRINGE SQ SCH (12:14)
[2018-06-24] MEDS: ONDANSETRON 16 MG in SODIUM CHLORIDE 0.9% 50 ML IVPB SCH (12:15)
[2018-06-24] MEDS: DOXORUBICIN HCL IV SCH (19:16)
[2018-06-24] MEDS: ETOPOSIDE IV SCH (19:16)
[2018-06-24] MEDS: [UNRECOGNIZED DRUG - OTHER] IV SCH (19:16)
[2018-06-24] MEDS: VINCRISTINE SULFATE IV SCH (19:16)
[2018-06-25] MEDS: SODIUM CHLORIDE 0.9% 1,000 ML IV SCH ×3 (05:29→16:48)
[2018-06-25] MEDS: predniSONE 10 MG TAB PO SCH ×2 (08:31→21:58)
[2018-06-25] MEDS: predniSONE 50 MG TAB PO SCH ×2 (08:31→21:59)
[2018-06-25] MEDS: ENOXAPARIN 40 MG/0.4 ML SYRINGE SQ SCH (08:31)
[2018-06-25 12:10] LABS: Anisocytosis Slight; Basophils % (A) 0 %; Eosinophils % (A) 0 %; HCT 34.7 % (39.0-53.0); HGB 11.3 gm/dL (13.0-17.5); Lymphocytes # (A) 0.4 k/uL (1.0-4.8); Lymphocytes % (A) 4 %; MCH 27.4 pg (25.0-35.0); MCHC 32.5 g/dL (31.0-37.0); MCV 84.5 fL (80.0-100.0); Mean Platelet Volume 7.3; Monocytes # (A) 0.4 k/uL (0-1.0); Monocytes % (A) 3 %; Neutrophils # (A) 11.3 k/uL (1.3-7.7); Neutrophils % (A) 92 %; Platelet Count 198 k/uL (150-450); RBC 4.11 m/uL (4.30-5.90); WBC 12.2 k/uL (4.0-11.0)
[2018-06-25 12:19] LABS: ALT 33 U/L (21-72); AST 16 U/L (17-59); Albumin 3.2 g/dL (3.5-5.0); Alkaline Phosphatase 68 U/L (38-126); Anion Gap 7 mmol/L; Blood Urea Nitrogen 8 mg/dL (9-20); Carbon Dioxide 24 mmol/L (22-30); Chloride 108 mmol/L (98-107); Glucose 131 mg/dL (74-99); Potassium 3.6 mmol/L (3.5-5.1); Sodium 139 mmol/L (137-145); Total Bilirubin 0.4 mg/dL (0.2-1.3); Total Protein 5.3 g/dL (6.3-8.2)
[2018-06-25] MEDS: FAMOTIDINE 20 MG/2 ML VIAL IV SCH (12:35)
[2018-06-25] MEDS: ONDANSETRON 16 MG in SODIUM CHLORIDE 0.9% 50 ML IVPB SCH (12:35)
--- NOTE | 2018-06-25 14:53 | P.PN ---
Subjective Progress Note Date: 06/25/18 Principal diagnosis: Admit cycle #4 CIVI R-EPOCH for Burkitt's Lymphoma In follow-up today patient is more awake and interactive. He denies headache, dizziness, mild nausea, no vomiting, oral irritation, appetite is fair, JENAE, cough, abdominal pain or bloating, has not had a BM since admit, no dysuria, hematuria, bleeding or pain. He is independently ambulatory Objective - Vital Signs Vital signs: Vital Signs Temp 98 F 06/25/18 12:00 Pulse 70 06/25/18 12:00 Resp 16 06/25/18 12:00 BP 125/77 06/25/18 12:00 Pulse Ox 97 06/25/18 12:00 Intake & Output 06/24/18 06/25/18 06/25/18 18:59 06:59 18:59 Intake Total 1730 2197 1610 Balance 1730 2197 1610 Weight 74 kg Intake: Intake, IV Titration 5024 673 3422 Amount Cyclophosphamide 1,000 mg 160 Cyclophosphamide 400 mg In Sodium Chloride 0.9% 250 ml @ 640 mls/hr IV ONCE [facility] Rx#:[id number] Etoposide 90 mg 130 97 DOXOrubicin HCL 19 mg vinCRIStine SULFATE 0.75 mg In Sodium Chloride 0.9 % 500 ml 500 ml @ 21.448 mls/hr IV Q24H [facility] Rx#: [id number] Ondansetron 16 mg In 50 50 Sodium Chloride 0.9% 50 ml @ 232 mls/hr IVPB Q24H [facility] Rx#:[id number] Sodium Chloride 0.9% 1, 900 600 900 000 ml @ 150 mls/hr IV . Q6H40M [facility] Rx#:[id number] Oral 650 1500 500 Other: Voiding Method Toilet Toilet Toilet # Voids 4 3 3 - Constitutional General appearance: Present: average body habitus, cooperative, no acute distres s - EENT Eyes: Present: anicteric sclerae, EOMI ENT: Present: hearing grossly normal, normal oropharynx - Respiratory Respiratory: bilateral: CTA - Cardiovascular Rhythm: regular Heart sounds: normal: S1, S2 Abnormal Heart Sounds: Absent: systolic murmur, diastolic murmur, rub, S3 Gallop, S4 Gallop, click, other - Peripheral edema leg Peripheral Edema: bilateral: Trace - Gastrointestinal General gastrointestinal: Present: normal bowel sounds, soft - Integumentary Integumentary: Present: pale - Neurologic Neurologic: Present: CNII-XII intact - Musculoskeletal Musculoskeletal: Present: strength equal bilaterally - Psychiatric Psychiatric: Present: A&O x's 3, appropriate affect, intact judgment & insight - Labs CBC & Chem 7: 06/25/18 11:32 06/25/18 11:32 Labs: Abnormal Lab Results - Last 24 Hours (Table) 06/25/18 06/25/18 Range/Units 11:32 11:32 WBC 12.2 H (4.0-11.0) k/uL RBC 4.11 L (4.30-5.90) m/uL Hgb 11.3 L (13.0-17.5) gm/dL Hct 34.7 L (39.0-53.0) % RDW 16.0 H (11.5-15.5) % Neutrophils # 11.3 H (1.3-7.7) k/uL Lymphocytes # 0.4 L (1.0-4.8) k/uL Chloride 108 H (98-107) mmol/L BUN 8 L (9-20) mg/dL Creatinine 0.58 L (0.66-1.25) mg/dL Glucose 131 H (74-99) mg/dL AST 16 L (17-59) U/L Total Protein 5.3 L (6.3-8.2) g/dL Albumin 3.2 L (3.5-5.0) g/dL Assessment and Plan (1) Burkitt lymphoma Narrative/Plan: Admitted for cycle #4 CIVI chemotherapy. No acute, unmanaged or uncontrolled side effects Supportive medications ordered, no acute c/o Labs daily I&O, vital sign monitoring, GI and DVT prophylaxis Daily follow-up Current Visit: Yes Status: Acute Priority: High Code(s): C83.70 - BURKITT LYMPHOMA, UNSPECIFIED SITE SNOMED Code(s): 588725682
[2018-06-25] MEDS: DOCUSATE 100 MG CAP PO SCH (16:48)
[2018-06-25] MEDS: [UNRECOGNIZED DRUG - OTHER] IV SCH (18:46)
[2018-06-25] MEDS: DOXORUBICIN HCL IV SCH (18:46)
[2018-06-25] MEDS: ETOPOSIDE IV SCH (18:46)
[2018-06-25] MEDS: VINCRISTINE SULFATE IV SCH (18:46)
[2018-06-26] MEDS: SODIUM CHLORIDE 0.9% 1,000 ML IV SCH ×3 (03:17→20:22)
[2018-06-26] MEDS: predniSONE 50 MG TAB PO SCH ×2 (08:00→20:22)
[2018-06-26] MEDS: ENOXAPARIN 40 MG/0.4 ML SYRINGE SQ SCH (08:00)
[2018-06-26] MEDS: predniSONE 10 MG TAB PO SCH ×2 (08:00→20:22)
[2018-06-26] MEDS: DOCUSATE 100 MG CAP PO SCH ×2 (08:00→20:22)
[2018-06-26 08:44] LABS: Basophils % (A) 0 %; Eosinophils % (A) 0 %; HCT 37.7 % (39.0-53.0); HGB 12.3 gm/dL (13.0-17.5); Lymphocytes # (A) 0.4 k/uL (1.0-4.8); Lymphocytes % (A) 4 %; MCH 27.3 pg (25.0-35.0); MCHC 32.5 g/dL (31.0-37.0); MCV 83.9 fL (80.0-100.0); Mean Platelet Volume 7.1; Monocytes # (A) 0.4 k/uL (0-1.0); Monocytes % (A) 4 %; Neutrophils % (A) 91 %; Platelet Count 210 k/uL (150-450); RBC 4.49 m/uL (4.30-5.90); RDW 15.8 % (11.5-15.5); WBC 8.8 k/uL (4.0-11.0)
[2018-06-26 09:00] LABS: ALT 42 U/L (21-72); AST 19 U/L (17-59); Albumin 3.6 g/dL (3.5-5.0); Alkaline Phosphatase 59 U/L (38-126); Anion Gap 6 mmol/L; Blood Urea Nitrogen 8 mg/dL (9-20); Carbon Dioxide 30 mmol/L (22-30); Chloride 103 mmol/L (98-107); Glucose 129 mg/dL (74-99); Potassium 3.6 mmol/L (3.5-5.1); Sodium 139 mmol/L (137-145); Total Bilirubin 0.5 mg/dL (0.2-1.3); Total Protein 5.7 g/dL (6.3-8.2)
--- NOTE | 2018-06-26 11:35 | P.PN ---
Subjective Progress Note Date: 06/26/18 Principal diagnosis: Admit cycle #4 CIVI R-EPOCH for Burkitt's Lymphoma Patient continues to do well, some mild nausea this morning and he did vomit his banana, denies any current nausea, headache, dizziness, oral irritation, cough, JENAE, cough, abdominal pain or bloating, did have a BM, no dysuria, hematuria, bleeding or pain. He is independently ambulatory Objective - Vital Signs Vital signs: Vital Signs Temp 98.2 F 06/26/18 08:00 Pulse 73 06/26/18 08:00 Resp 16 06/26/18 08:00 BP 122/74 06/26/18 08:00 Pulse Ox 97 06/26/18 08:00 Intake & Output 06/25/18 06/26/18 06/26/18 18:59 06:59 18:59 Intake Total 1610 1790 Balance 1610 1790 Weight 73.5 kg Intake: Intake, IV Titration 1110 Amount Cyclophosphamide 1,000 mg 160 Cyclophosphamide 400 mg In Sodium Chloride 0.9% 250 ml @ 640 mls/hr IV ONCE [facility] Rx#:[id number] Ondansetron 16 mg In 50 Sodium Chloride 0.9% 50 ml @ 232 mls/hr IVPB Q24H [facility] Rx#:[id number] Sodium Chloride 0.9% 1, 900 000 ml @ 150 mls/hr IV . Q6H40M [facility] Rx#:[id number] Oral 500 1790 Other: Voiding Method Toilet Toilet Toilet # Voids 3 2 - Constitutional General appearance: Present: average body habitus, cooperative, no acute distress - EENT Eyes: Present: anicteric sclerae, EOMI ENT: Present: hearing grossly normal, normal oropharynx - Respiratory Respiratory: bilateral: CTA - Cardiovascular Rhythm: regular Heart sounds: normal: S1, S2 Abnormal Heart Sounds: Absent: systolic murmur, diastolic murmur, rub, S3 Gallop, S4 Gallop, click, other - Peripheral edema foot Peripheral Edema: bilateral: Trace - Gastrointestinal General gastrointestinal: Present: normal bowel sounds, soft - Integumentary Integumentary: Present: normal turgor, pale - Neurologic Neurologic: Present: CNII-XII intact - Musculoskeletal Musculoskeletal: Present: strength equal bilaterally - Psychiatric Psychiatric: Present: A&O x's 3, appropriate affect, intact judgment & insight - Labs CBC & Chem 7: 06/26/18 08:04 06/26/18 08:04 Labs: Abnormal Lab Results - Last 24 Hours (Table) 06/25/18 06/25/18 06/26/18 Range/Units 11:32 11:32 08:04 WBC 12.2 H (4.0-11.0) k/uL RBC 4.11 L (4.30-5.90) m/uL Hgb 11.3 L 12.3 L (13.0-17.5) gm/dL Hct 34.7 L 37.7 L (39.0-53.0) % RDW 16.0 H 15.8 H (11.5-15.5) % Neutrophils # 11.3 H 8.0 H (1.3-7.7) k/uL Lymphocytes # 0.4 L 0.4 L (1.0-4.8) k/uL Chloride 108 H (98-107) mmol/L BUN 8 L (9-20) mg/dL Creatinine 0.58 L (0.66-1.25) mg/dL Glucose 131 H (74-99) mg/dL AST 16 L (17-59) U/L Total Protein 5.3 L (6.3-8.2) g/dL Albumin 3.2 L (3.5-5.0) g/dL 06/26/18 Range/Units 08:04 WBC (4.0-11.0) k/uL RBC (4.30-5.90) m/uL Hgb (13.0-17.5) gm/dL Hct (39.0-53.0) % RDW (11.5-15.5) % Neutrophils # (1.3-7.7) k/uL Lymphocytes # (1.0-4.8) k/uL Chloride (98-107) mmol/L BUN 8 L (9-20) mg/dL Creatinine 0.59 L (0.66-1.25) mg/dL Glucose 129 H (74-99) mg/dL AST (17-59) U/L Total Protein 5.7 L (6.3-8.2) g/dL Albumin (3.5-5.0) g/dL Assessment and Plan (1) Burkitt lymphoma Narrative/Plan: Admitted for cycle #4 CIVI chemotherapy, day 3 today. Supportive medications ordered Labs daily I&O, vital sign monitoring, GI and DVT prophylaxis Mild nausea today and one episode of vomiting. Patient encouraged to utilize antiemetics as needed. Constipation resolved. Continue stool softener Daily follow-up Current Visit: Yes Status: Acute Priority: High Code(s): C83.70 - BURKITT LYMPHOMA, UNSPECIFIED SITE SNOMED Code(s): 024144278
[2018-06-26] MEDS: ONDANSETRON 16 MG in SODIUM CHLORIDE 0.9% 50 ML IVPB SCH (13:30)
[2018-06-26] MEDS: FAMOTIDINE 20 MG/2 ML VIAL IV SCH (13:30)
[2018-06-26] MEDS: VINCRISTINE SULFATE IV SCH (17:42)
[2018-06-26] MEDS: DOXORUBICIN HCL IV SCH (17:42)
[2018-06-26] MEDS: ETOPOSIDE IV SCH (17:42)
[2018-06-26] MEDS: [UNRECOGNIZED DRUG - OTHER] IV SCH (17:42)
[2018-06-27] MEDS: SODIUM CHLORIDE 0.9% 1,000 ML IV SCH ×3 (03:44→12:39)
[2018-06-27 08:17] LABS: Basophils % (A) 0 %; Eosinophils % (A) 0 %; HCT 39.2 % (39.0-53.0); HGB 12.5 gm/dL (13.0-17.5); Lymphocytes # (A) 0.5 k/uL (1.0-4.8); Lymphocytes % (A) 6 %; MCH 26.8 pg (25.0-35.0); MCHC 31.8 g/dL (31.0-37.0); MCV 84.4 fL (80.0-100.0); Mean Platelet Volume 7.1; Monocytes # (A) 0.4 k/uL (0-1.0); Monocytes % (A) 4 %; Neutrophils # (A) 7.4 k/uL (1.3-7.7); Neutrophils % (A) 89 %; Platelet Count 232 k/uL (150-450); RBC 4.65 m/uL (4.30-5.90); RDW 15.7 % (11.5-15.5); WBC 8.3 k/uL (4.0-11.0)
[2018-06-27 08:35] LABS: ALT 38 U/L (21-72); AST 16 U/L (17-59); Albumin 3.6 g/dL (3.5-5.0); Alkaline Phosphatase 55 U/L (38-126); Anion Gap 6 mmol/L; Blood Urea Nitrogen 9 mg/dL (9-20); Calcium 9.2 mg/dL (8.4-10.2); Carbon Dioxide 30 mmol/L (22-30); Chloride 102 mmol/L (98-107); Glucose 123 mg/dL (74-99); Potassium 3.4 mmol/L (3.5-5.1); Sodium 138 mmol/L (137-145); Total Bilirubin 0.5 mg/dL (0.2-1.3); Total Protein 5.6 g/dL (6.3-8.2)
[2018-06-27] MEDS: ENOXAPARIN 40 MG/0.4 ML SYRINGE SQ SCH (09:05)
[2018-06-27] MEDS: predniSONE 10 MG TAB PO SCH ×2 (09:06→20:12)
[2018-06-27] MEDS: DOCUSATE 100 MG CAP PO SCH ×2 (09:06→20:12)
[2018-06-27] MEDS: predniSONE 50 MG TAB PO SCH ×2 (09:06→20:12)
[2018-06-27] MEDS: FAMOTIDINE 20 MG/2 ML VIAL IV SCH (12:38)
[2018-06-27] MEDS: ONDANSETRON 16 MG in SODIUM CHLORIDE 0.9% 50 ML IVPB SCH (12:38)
[2018-06-27] MEDS ORDERED: Potassium Replacement Protocol 1 EACH MISC MISCELLANE PRN (15:13)
--- NOTE | 2018-06-27 15:42 | P.PN ---
Subjective Progress Note Date: 06/27/18 Principal diagnosis: Admit cycle #4 CIVI R-EPOCH for Burkitt's Lymphoma Patient continues to do well with treatment, he has no complaints and a 14 point review of systems, he does have hypokalemia today that is being supplemented. Patient did have quite a bit of difficulty sleeping last night and today. Objective - Vital Signs Vital signs: Vital Signs Temp 97.8 F 06/27/18 12:00 Pulse 75 06/27/18 12:00 Resp 18 06/27/18 12:00 BP 118/76 06/27/18 12:00 Pulse Ox 97 06/27/18 12:00 Intake & Output 06/26/18 06/27/18 06/27/18 18:59 06:59 18:59 Intake Total 1800 1981 1799 Balance 1800 1981 1799 Weight 73 kg Intake: Intake, IV Titration 1200 1392 1200 Amount Etoposide 90 mg 192 DOXOrubicin HCL 19 mg vinCRIStine SULFATE 0.75 mg In Sodium Chloride 0.9 % 500 ml 500 ml @ 21.448 mls/hr IV Q24H [facility] Rx#: [id number] Sodium Chloride 0.9% 1, 1200 1200 1200 000 ml @ 150 mls/hr IV . Q6H40M [facility] Rx#:[id number] Oral 600 590 600 Other: Voiding Method Toilet Toilet Toilet # Voids 2 2 2 - Constitutional General appearance: Present: average body habitus, cooperative, no acute distress - EENT Eyes: Present: anicteric sclerae, EOMI ENT: Present: hearing grossly normal, normal oropharynx - Respiratory Respiratory: bilateral: CTA - Cardiovascular Rhythm: regular Heart sounds: normal: S1, S2 Abnormal Heart Sounds: Absent: systolic murmur, diastolic murmur, rub, S3 Gallop, S4 Gallop, click, other - Peripheral edema leg Peripheral Edema: bilateral: None - Gastrointestinal General gastrointestinal: Present: normal bowel sounds, soft - Integumentary Integumentary: Present: pale - Neurologic Neurologic: Present: CNII-XII intact - Musculoskeletal Musculoskeletal: Present: strength equal bilaterally - Psychiatric Psychiatric: Present: A&O x's 3, appropriate affect, intact judgment & insight - Labs CBC & Chem 7: 06/27/18 07:49 06/27/18 07:49 Labs: Abnormal Lab Results - Last 24 Hours (Table) 06/27/18 06/27/18 Range/Units 07:49 07:49 Hgb 12.5 L (13.0-17.5) gm/dL RDW 15.7 H (11.5-15.5) % Lymphocytes # 0.5 L (1.0-4.8) k/uL Potassium 3.4 L (3.5-5.1) mmol/L Creatinine 0.59 L (0.66-1.25) mg/dL Glucose 123 H (74-99) mg/dL AST 16 L (17-59) U/L Total Protein 5.6 L (6.3-8.2) g/dL Assessment and Plan (1) Burkitt lymphoma Narrative/Plan: Admitted for cycle #4 CIVI chemotherapy, day 4 today, should be completing treatment sometime tonight, early tomorrow. Additional discharge has been placed in the chart. Continue Supportive medications as ordered Labs daily I&O, vital sign monitoring, GI and DVT prophylaxis Constipation resolved. Continue stool softener Benadryl tonight at bedtime for insomnia Prescription for low dose potassium ordered, patient will be in the office on Saturday morning for lab draw. We'll recheck at that time Current Visit: Yes Status: Acute Priority: High Code(s): C83.70 - BURKITT LYMPHOMA, UNSPECIFIED SITE SNOMED Code(s): 152787645
[2018-06-27] MEDS: POTASSIUM CHLORIDE ER 20 MEQ TAB.ER PO SCH ×2 (17:58→17:59)
[2018-06-27] MEDS ORDERED: diphenhydrAMINE 25 MG CAP PO SCH (21:00)
[2018-06-27] MEDS ORDERED: SODIUM CHLORIDE 0.9% IV ONE (21:00)
[2018-06-27] MEDS ORDERED: CYCLOPHOSPHAMIDE IV ONE (21:00)
[2018-06-28] MEDS: SODIUM CHLORIDE 0.9% 1,000 ML IV SCH ×3 (03:57→10:23)
[2018-06-28 05:52] VITALS: RESP 16
[2018-06-28 07:29] LABS: Basophils % (A) 0 %; Eosinophils % (A) 0 %; HCT 38.3 % (39.0-53.0); HGB 12.5 gm/dL (13.0-17.5); Lymphocytes # (A) 0.3 k/uL (1.0-4.8); Lymphocytes % (A) 5 %; MCH 26.9 pg (25.0-35.0); MCHC 32.6 g/dL (31.0-37.0); MCV 82.5 fL (80.0-100.0); Mean Platelet Volume 7.2; Monocytes # (A) 0.1 k/uL (0-1.0); Monocytes % (A) 2 %; Neutrophils # (A) 5.9 k/uL (1.3-7.7); Neutrophils % (A) 93 %; Platelet Count 215 k/uL (150-450); RBC 4.64 m/uL (4.30-5.90); RDW 15.5 % (11.5-15.5); WBC 6.3 k/uL (4.0-11.0)
[2018-06-28 07:38] LABS: ALT 42 U/L (21-72); AST 15 U/L (17-59); Albumin 3.9 g/dL (3.5-5.0); Alkaline Phosphatase 57 U/L (38-126); Anion Gap 7 mmol/L; Blood Urea Nitrogen 11 mg/dL (9-20); Calcium 9.5 mg/dL (8.4-10.2); Carbon Dioxide 30 mmol/L (22-30); Chloride 101 mmol/L (98-107); Glucose 111 mg/dL (74-99); Potassium 3.6 mmol/L (3.5-5.1); Sodium 138 mmol/L (137-145); Total Bilirubin 0.8 mg/dL (0.2-1.3); Total Protein 5.9 g/dL (6.3-8.2)
[2018-06-28] MEDS: ENOXAPARIN 40 MG/0.4 ML SYRINGE SQ SCH (08:23)
[2018-06-28] MEDS: DOCUSATE 100 MG CAP PO SCH (08:23)
[2018-06-28 08:31] LABS: Glucose,Whole Blood 121 mg/dL (75-99)
[2018-06-28 13:05] VITALS: BP 122/68; PULSE 66; TEMP 98
== END 2018-06-28 15:00 | disposition home or self-care (01) | DRG 847 ==
LOC: 3NMEDONC 07:51 → 3SCARD 22:13
PROVIDERS: ADMIT Internal Medicine Hematology & Oncology; ATTEND Internal Medicine Hematology & Oncology
PROC: 3E0R305 Introduction of Other Antineoplastic into Spinal Canal, Percutaneous Approach (ICD-10-PCS; principal; 2018-06-23)
DX: Z51.11 Encounter for antineoplastic chemotherapy (principal); C83.71 Burkitt lymphoma, lymph nodes of head, face, and neck; Z87.442 Personal history of urinary calculi; Z79.899 Other long term (current) drug therapy; K59.00 Constipation, unspecified; R11.2 Nausea with vomiting, unspecified; G47.00 Insomnia, unspecified
CPT/HCPCS: 62270; 80053; 84550; 85025; 96450

== ENCOUNTER → 2018-08-30 | Outpatient (CLI) | payer OTHER ==
--- NOTE | 2018-09-01 10:30 | PE ---
EXAMINATION TYPE: PET CT fusion skull to thigh DATE OF EXAM: 08/30/2018 COMPARISON: 03/29/2018 PET/CT Prior PET/CT: 03/29/2018 HISTORY: Lymphoma TECHNIQUE: Following the intravenous administration of 11.39 mCi of F-18 FDG, whole body images are performed from the skull base to the midthigh. Images are reviewed on the computer in the coronal, a xial, and sagittal planes. Reconstructed rotating images are created on independent workstation and reviewed on the computer. A localization and attenuation correction CT is performed in conjunction with the PET scan. DLP: 319.29 mGycm SCAN: Subsequent Blood glucose: 95 mg/dL Average Mediastinum SUV: 0.9 Average Liver SUV: 1.34 FINDINGS: NECK: Note is made of some symmetrical uptake within the wall washer spaces which can be related to m uscle activity during injection. There appears to be a focal area of increased uptake within the posterior paraspinal region on the ri ght which may correspond to a lymph node. SUV value 1.61. This could be inflammatory. This could rachna espond potential noted on CT. Is difficult to separate from musculature but is focal on the PET scan. Additional small focus of radiotracer accumulation is posterior to the right angle of the jaw within the right parotid region with an SUV value 1.76 this may also be an inflammatory lymph node. Corresp onding abnormality is not identified on the CT examination. THORAX: There are focal areas of radiotracer accumulation along the bilateral neck, more likely relat ed to brown fat. This is symmetrical small amount of paraspinal and axillary brown fat uptake may als o be present. Suspicious enlarged lymphadenopathy with abnormal uptake is not identified. ABDOMEN: There is a small focus of radiotracer accumulation within SUV value 1.65 the right pre psoas muscle region near the pelvic inlet. This could be related to a ureter. A corresponding lymph node i s not identified. Potentially this could be related to some bowel activity in this region. PET image 199 PELVIS: No abnormal uptake OSSEOUS STRUCTURES: No abnormal uptake LOCALIZATION CT: Ascending thoracic aorta at the main pulmonary artery measures 3.0 cm patent main pu lmonary artery the bifurcation is 3.2 cm. There is a 0.5 cm nonobstructing right renal stone present. Corresponding to the area of uptake on the PET scan is a 1.3 cm density which could be a lymph node. COMPARISON: No significant interval changes are evident. IMPRESSION: 1. Suspicious conclusive abnormal uptake to suggest metastatic trauma is not evident. 2. There are some intermediate areas of increased radiotracer accumulation which are more likely infl ammatory in nature if they correspond to lymph nodes.
== END | disposition home or self-care (01) ==
LOC: RADPETMAIN 08:30
PROVIDERS: ATTEND Internal Medicine Hematology & Oncology
DX: C83.71 Burkitt lymphoma, lymph nodes of head, face, and neck (principal)
CPT/HCPCS: 78815; A9552